=== PATIENT | female | born 1990 | race Caucasian/White ===

== ENCOUNTER 2018-09-09 08:00 | Outpatient (CLI) | payer OTHER ==
[2018-09-09 18:47] LABS: BASOPHILS % (AUTO) 0.5 %; EOSINOPHILS # (AUTO) 0.1 10^3/uL (0.0-0.7); EOSINOPHILS % (AUTO) 1.7 %; HGB - HEMOGLOBIN 11.6 g/dL (12.0-16.0); LYMPHOCYTES # (AUTO) 2.7 10^3/uL (1.5-3.5); LYMPHOCYTES % (AUTO) 35.3 %; MEAN CORPUSCULAR HEMOGLOBIN 30.1 pg (27.0-31.0); MEAN CORPUSCULAR HGB CONC 33.2 g/dL (32.0-36.0); MEAN CORPUSCULAR VOLUME 90.9 fL (81.0-99.0); MEAN PLATELET VOLUME 8.1 fL (7.9-10.8); MONOCYTES # (AUTO) 0.8 10^3/uL (0.0-1.0); MONOCYTES % (AUTO) 9.7 %; NEUTROPHILS # (AUTO) 4.1 10^3/uL (1.5-6.6); NEUTROPHILS % (AUTO) 52.8 %; PLT - PLATELET COUNT 278 10^3/uL (130-450); RED BLOOD COUNT 3.84 10^6/uL (4.20-5.40); RED CELL DISTRIBUTION WIDTH 12.2 % (12.0-15.0); WHITE BLOOD COUNT 7.8 x10^3/uL (4.8-10.8)
[2018-09-09 19:20] LABS: ALBUMIN 4.2 g/dL (3.2-5.5); ALBUMIN/GLOBULIN RATIO 1.5 (1.0-2.2); BILIRUBIN,TOTAL 0.7 mg/dL (0.2-1.0); CALCIUM 8.8 mg/dL (8.5-10.3); CREATININE 0.5 mg/dL (0.4-1.0)
[2018-09-09 20:14] LABS: THYROID STIMULATING HORMONE 1.63 uIU/mL (0.34-5.60)
[2018-09-09 20:25] LABS: FOLATE 10.52 ng/mL (5.90 - >24.8)
== END 2018-09-09 23:59 | disposition home or self-care (01) ==
LOC: LAB.N 08:00
PROVIDERS: ATTEND Nurse Practitioner
DX: R53.83 Other fatigue (principal); E55.9 Vitamin D deficiency, unspecified
CPT/HCPCS: 36415; 80053; 82306; 82607; 82746; 84443; 85025

== ENCOUNTER 2018-09-15 10:41 | Outpatient (CLI) | payer OTHER ==
[2018-09-15 13:35] LABS: % IRON SATURATION 21 % (20-50); IRON 75 ug/dL (28-170); TOTAL IRON BINDING CAPACITY 363 ug/dL (250-450); TRANSFERRIN 259 mg/dL (192-382)
== END 2018-09-15 23:59 | disposition home or self-care (01) ==
LOC: LAB.N 10:41
PROVIDERS: ATTEND Nurse Practitioner
DX: D64.9 Anemia, unspecified (principal)
CPT/HCPCS: 36415; 82728; 83540; 84466

== ENCOUNTER 2018-11-15 13:48 | Outpatient (CLI) | payer OTHER ==
--- NOTE | 2018-11-15 15:53 | Ultrasound Report ---
Reason: LUMP OR MASS IN BREAST Procedure Date: 11/15/2018 Accession Number: [id number] / [id number] Procedure: US - Breast Unilateral Limited CPT Code: FULL RESULT: EXAM: Breast Unilateral Limited DATE: 11/15/2018 2:39 PM CLINICAL HISTORY: PALPABLE LUMP OR MASS IN BREAST COMPARISON: None. TECHNIQUE: Targeted ultrasound was performed with me present of the left breast in the area of clinical concern at 2:30 o'clock and 5 cm distance from the nipple. Color Doppler was employed as appropriate. FINDINGS: Corresponding to the palpable abnormality left breast 2:30 position 5 cm from the nipple is an approximately 1.9 x 1.8 x 1.4 cm solid complex ill defined mildly vascular lesion with posterior shadowing and tiny focal areas of increased echogenicity suggesting calcifications. Exact size of the lesion is difficult to confirm due to poor margination and shadowing. IMPRESSION: Incomplete evaluation. Needs mammography for comparison. RECOMMENDATION: Follow-up by bilateral mammography. Patient is scheduled for mammogram on 11/16/2018. BIRADS CATEGORY 0: Needs additional evaluation RADIA
== END 2018-11-15 13:49 | disposition home or self-care (01) ==
LOC: DI 13:48
PROVIDERS: ATTEND Nurse Practitioner
DX: N63.21 Unspecified lump in the left breast, upper outer quadrant (principal)
CPT/HCPCS: 76642

== ENCOUNTER 2018-11-16 10:30 | Outpatient (CLI) | payer OTHER ==
--- NOTE | 2018-11-16 11:43 | Mammography Report ---
Reason: LT BREAST MASS Procedure Date: 11/16/2018 Accession Number: [id number] / [id number] Procedure: NARGIS - Diagnostic Dig Bilat CPT Code: FULL RESULT: EXAM: Diagnostic Dig Bilat DATE: 11/16/2018 11:17 AM CLINICAL HISTORY: Palpable lump left breast TECHNIQUE: (B) - Bilateral CC and MLO views were obtained. COMPARISON: Left breast ultrasound 11/15/2018 PARENCHYMAL PATTERN: (D) - The breasts demonstrate heterogeneously dense fibroglandular parenchyma bilaterally. FINDINGS: Corresponding to the left upper outer quadrant palpable abnormality is a 7 x 4 x 5 cm area of innumerable suspicious pleomorphic calcifications. The right breast is negative. IMPRESSION: Highly suggestive for malignancy. BI-RADS category 5. RECOMMENDATION: (BIOPSY) - ultrasound-guided left upper outer quadrant core biopsy is suggested. BI-RADS CATEGORY: (5) - Highly suggestive for malignancy. Results discussed with Dr. Bentley at 11:30 am on 11/16/18. STANDARD QUALIFYING STATEMENTS: 1. This examination was not reviewed with the aid of Computer-Aided Detection (CAD). 2. A negative or benign imaging report should not preclude biopsy if clinically suspicious findings are present. 3. Dense breasts may obscure an underlying neoplasm. 4. This examination was reviewed with the aid of 3D breast imaging (tomosynthesis).
== END 2018-11-16 10:31 | disposition home or self-care (01) ==
LOC: DI 10:30
PROVIDERS: ATTEND Family Medicine
DX: R92.1 Mammographic calcification found on diagnostic imaging of breast (principal)
CPT/HCPCS: 77066

== ENCOUNTER 2018-11-18 10:42 | Outpatient (CLI) | payer OTHER ==
[~2018-11-18 10:42] MED LIST: BUFFERED LIDOCAINE 10 ML SYRINGE ONE; BUPIVACAINE 0.5%-EPI 1:200000 PF 10 ML VIAL ONE
[2018-11-18] MEDS ORDERED: BUPIVACAINE 0.5%-EPI 1:200000 PF 10 ML VIAL SUBQ ONE (12:13)
[2018-11-18] MEDS ORDERED: BUFFERED LIDOCAINE 10 ML SYRINGE IU ONE (12:13)
--- NOTE | 2018-11-18 12:46 | Mammography Report ---
Reason: ABN MAMMO - LT BREAST MASS Procedure Date: 11/18/2018 Accession Number: [id number] / [id number] Procedure: NARGIS - Diagnostic Dig LT CPT Code: FULL RESULT: PROCEDURE: Ultrasound-guided needle biopsy left breast mass. CLINICAL DATA: Targeted mass measuring approximately 2 x 2 x 1.4 cm with pleomorphic calcifications and ill-defined margins in the upper outer quadrant of the left breast. Informed consent was obtained. Using standard aseptic technique, both 1% buffered lidocaine and Sensorcaine were injected into the left breast for local anesthesia. A small elvia was made in the skin with a #11 blade. A 14-gauge Achieve needle was used to obtain 7 core samples. A specialized biopsy marker clip was placed into the biopsy cavity under ultrasound guidance. The patient was taken to separate mammography machine and a two-view digital mammography was performed to verify the clip placement and any complications. The mammography showed appropriate clip positioning with respect to the suspicious area. The wound was dressed and ice applied. The patient was observed for approximately 15 minutes, then was discharged from diagnostic imaging Department in good condition following instructions on wound care and obtaining biopsy results. The patient is scheduled to receive the biopsy results from the referring physician. The tissue was sent for histologic analysis. IMPRESSION: Ultrasound-guided biopsy of the left breast. AN ADDENDUM WILL BE MADE TO THIS REPORT WHEN PATHOLOGY IS REVIEWED TO ESTABLISH CONCORDANCE.
== END 2018-11-18 10:43 | disposition home or self-care (01) ==
LOC: DI 10:42
PROVIDERS: ATTEND Family Medicine
DX: C50.412 Malignant neoplasm of upper-outer quadrant of left female breast (principal); Z17.0 Estrogen receptor positive status [ER+]
CPT/HCPCS: 19083

== ENCOUNTER 2018-11-25 13:56 | Outpatient (CLI) | payer OTHER ==
[2018-11-25 14:46] LABS: CREATININE 0.7 mg/dL (0.4-1.0)
[2018-11-25 14:47] LABS: HCG UR QUAL NEGATIVE
[2018-11-25] MEDS ORDERED: GADOBUTROL 7.5 MMOL/7.5 ML VIAL ONE (15:22)
[2018-11-25] MEDS: GADOBUTROL 7.5 MMOL/7.5 ML VIAL IVP ONE (16:26)
--- NOTE | 2018-11-28 13:50 | MRI Report ---
Reason: INVASIVE DUCTAL CARCINOMA,LEFT BREAST Procedure Date: 11/25/2018 Accession Number: [id number] / [id number] Procedure: MRI - Breast W/WO Cont CPT Code: 78648 FULL RESULT: EXAM: BILATERAL BREAST MRI WITHOUT AND WITH CONTRAST WITH CHEST WITHOUT CONTRAST EXAM DATE: 11/25/2018 04:27 PM CLINICAL HISTORY: The patient is a 28 year old female newly diagnosed with left breast invasive carcinoma. Pretreatment MRI to assess for extent of disease. TECHNIQUE: Body Coil: (Limited chest MRI)- Coronal LFOV STIR Dedicated breast coil: Axial - precontrast STIR Axial - postcontrast sequential 1 minute three-dimensional FLASH (x 5) Axial - high-resolution volumetric water stimulation acquisition (VIEWS) CONTRAST USED: 6 mL Gadavist. POSTPROCESSING: Subtraction dynamic/curve analysis and multiplanar reformations with CAD stream FINDINGS: Background tissue: Heterogeneously dense. There is moderate diffuse background parenchymal enhancement which limits MR sensitivity for subcentimeter foci of invasive disease and DCIS. Right breast: There is no definite dominant focus of suspicious mass or non-mass enhancement. There is no skin thickening. There are no pathologically enlarged axillary lymph nodes. Left breast: There is irregularly-marginated hypervascular mass in the upper outer quadrant corresponding to the site of biopsy-proven malignancy. This mass measures approximately 4.2 x 4.4 x 4.7 cm. There is contiguous non-mass conglomerate enhancement extending anteriorly to the nipple corresponding to the mammographically visible calcifications. The net dimension is 8 cm in anterior to posterior distance. There is no evidence for skin invasion. There are two pathologically enlarged (replaced) level 1 axillary lymph nodes with mild marginal edema suggestive of extracapsular extension. IMPRESSION: 1. RIGHT BREAST: No convincing evidence for malignancy. (Note exam limitations described above) BI-RADS 2 - Benign. 2. LEFT BREAST: The biopsy-proven malignancy is confirmed, the dominant mass measures 4.7 cm in maximal dimension. Contiguous non-mass enhancement corresponds to the mammographically visible calcifications and is most suspicious for associated DCIS (8 cm in maximal net AP dimension). Pathologic axillary lymph nodes with possible extracapsular extension of disease. BI-RADS 6 - Known Malignancy. COMMENT: The literature indicates that a negative dynamic breast MRI has a high sensitivity and specificity for the detection of invasive carcinoma (to a threshold of 5 mm). MRI is not reliably sensitive for detecting ductal carcinoma in situ or large invasive neoplasms with only minimal enhancement (i.e. mucinous carcinoma). Normal-appearing lymph nodes on MRI may contain microscopic tumor. Appropriate clinical mammographic and sonographic followup should be performed if recommended. Negative MRI should not dissuade further evaluation of any suspicious mammographic calcifications and/or worrisome palpable masses.
== END 2018-11-25 13:57 | disposition home or self-care (01) ==
LOC: DI 13:56
PROVIDERS: ATTEND Surgery
DX: C50.412 Malignant neoplasm of upper-outer quadrant of left female breast (principal); R59.0 Localized enlarged lymph nodes
CPT/HCPCS: 36415; 77049; 81025; 82565; A9585

== ENCOUNTER 2018-12-06 10:03 | Day surgery (SDC) | payer OTHER ==
[2018-12-06] MEDS ORDERED: CEFAZOLIN SODIUM IN 0.9 % NACL 2 GM/100 ML BAG IV ONE (10:54)
[2018-12-06] MEDS ORDERED: LACTATED RINGERS 1,000 ML IV ONE ×2 (11:05→15:30)
--- NOTE | 2018-12-06 11:19 | ANESTHESIA ---
Pre-Anesthesia VS, & Labs - Diagnosis Left breast cancer - Procedure Left simple mastectomy with left axillary node dissection Vital Signs: Temp Pulse Resp BP Pulse Ox 36.6 C 74 18 133/86 H 100 12/06/18 10:21 12/06/18 10:21 12/06/18 10:21 12/06/18 10:21 12/06/18 10:21 Height 5 ft 1 in Weight (kg) 60 kg - NPO >8 hours (0730 water) - Is Patient ?: No - Lab Results Lab results reviewed: Yes Home Medications and Allergies Home Medications: Ambulatory Orders Bupropion HCl [Bupropion Xl] 150 mg PO DAILY 12/05/18 Bupropion HCl [Bupropion Xl] 150 mg PO DAILY 12/05/18 Allergies/Adverse Reactions: Allergies Allergy/AdvReac Type Severity Reaction Status Date / Time No Known Drug Allergies Allergy Verified 12/05/18 11:45 Anes History & Medical History - Anesthetic History Anesthesia Complications: reports: No previous complications Family history of Anesthesia Complications: Denies Family history of Malignant Hyperthermia: Denies - Medical History Cardiovascular: reports: None Pulmonary: reports: None Gastrointestinal: reports: None Urinary: reports: None Neuro: reports: None Musculoskeletal: reports: None Endocrine/Autoimmune: reports: None Blood Disorders: reports: Anemia Skin: reports: None Smoking Status: Never smoker Psychosocial: reports: Depression Exam General: Alert, Oriented x3, Cooperative Dental: WNL Mouth Opening: Greater than 4 Fingerbreadths Neck Mobility: Normal Mallampati classification: I Thyromental Distance: greater than 6 cm Respiratory: Lungs clear Cardiovascular: Regular rate Mental/Cognitive Status: Alert/Oriented X3 Cognitive Status: Within normal limits Plan Anesthesia Type: General Consent for Procedure(s) Verified and Reviewed: Yes Code Status: Attempt Resuscitation ASA classification: 1-Healthy patient Is this case an emergency?: No
[2018-12-06 11:40] LABS: HCG UR QUAL NEGATIVE
[2018-12-06] MEDS ORDERED: BUPIVACAINE 0.5%-EPI 1:200000 PF 30 ML VIAL ONE (13:03)
[2018-12-06] MEDS ORDERED: LIDOCAINE-MPF 1% 30 ML VIAL ONE (13:03)
--- NOTE | 2018-12-06 14:50 | OPERATIVE REPORT ---
Operative Report - General Procedure Date: 12/06/18 Planned Procedure: Left subcutaneous mastectomy with axillary dissection Pre-Op Diagnosis: Locally advanced left breast cancer Procedure Performed: Left subcutaneous mastectomy with axillary dissection Post Op Diagnosis: Same - Procedure Note Primary Surgeon: Angie Anesthesia Provider: Jimbo Anesthesia Technique: General LMA, Local, Regional block Estimated Blood Loss (mL): 25 Drain/Tube Type: Jason drain (In the inferior mastectomy pocket) Findings: Palpably enlarged and abnormal level one axillary node - Other Other Information/Narrative: After obtaining informed consent, the patient is brought to the operating room placed in supine position on the operating table.Following sedation, the patient underwent a successful pectoralis block per the anesthesia provider. Then, following successful induction of general endotracheal anesthesia, appropriate padding of all bony prominences and placement of appropriate monitors, the left chest, breast, and axilla were prepped and draped in the standard surgical fashion.A timeout was held per SCOAP protocol. Additional local anesthetic was infiltrated posterior to the nipple areolar complex to provide a field block.A circular incision was created around the nipple areolar complex. This was carried down through the skin and subcutaneous tissue. Planes of dissection were developed superiorly to the clavicle, medially to the sternum, inferiorly to the inframammary fold, and laterally to the latissimus muscle. The breast tissue was liberated from the overlying skin and subtenons tissue by dividing the Vinny's ligaments and other connective tissue. Once dissection had been carried down to the chest wall circumferentially, the breast was liberated from the muscle to include the fascia. This left the breast only attached by the small portion of the axillary tail and the axillary node packet. The previously identified palpably enlarged node was once again palpated and identified. We proceeded with a level 1 and 2 axillary dissection.This included mirta tissue inferior to and beneath the pectoralis minor muscle. All afferemt and efferent vasculature and lymphatics were addressed with hemoclips prior to division.This allowed us to completely liberate the breast from the chest wall.It was marked for orientation with a short stitch superior and a long stitch lateral.The wound was then checked for hemostasis and irrigated with warm water. It was aspirated free of all blood and particulate matter. A 19 Welsh Jason drain was trimmed and placed in the inframammary pocket. This was sewn into place with nylon suture. The skin incision was then closed with Vicryl Monocryl suture and Dermabond was applied to the skin. All sponge, needle, instrument counts were correct at the conc lusion of the case. The patient was allowed to awake from anesthesia without difficulty and taken to the postanesthesia care unit in good condition.
[2018-12-06] MEDS ORDERED: ROPIVACAINE 0.5% PF 20 ML AMPULE EP ONE (14:55)
[2018-12-06] MEDS ORDERED: MIDAZOLAM 2 MG/2 ML VIAL IVP ONE (14:55)
[2018-12-06] MEDS ORDERED: fentaNYL 100 MCG/2 ML VIAL IVP ONE (14:55)
[2018-12-06] MEDS ORDERED: KETOROLAC 30 MG/ML VIAL IVP ONE (14:55)
[2018-12-06] MEDS ORDERED: DEXAMETHASONE 4 MG/ML VIAL IVP ONE (14:55)
[2018-12-06] MEDS ORDERED: ONDANSETRON 4 MG/2 ML VIAL IVP ONE (14:55)
[2018-12-06] MEDS ORDERED: LIDOCAINE-MPF 2% 5 ML VIAL IM ONE (14:55)
[2018-12-06] MEDS ORDERED: ACETAMINOPHEN 1,000 MG/100 ML 100 ML IV ONE (14:55)
[2018-12-06] MEDS ORDERED: PROPOFOL 200 MG/20 ML VIAL IVP ONE (14:55)
[2018-12-06] MEDS: HYDROmorphone 1 MG/ML CARPUJECT ONE ×2 (15:00→15:10)
[2018-12-06] MEDS ORDERED: ACETAMINOPHEN 325 MG TABLET PO PRN (15:26)
[2018-12-06] MEDS ORDERED: ONDANSETRON 4 MG/2 ML VIAL IVP PRN (15:26)
[2018-12-06] MEDS ORDERED: HYDROmorphone 0.5 MG/0.5 ML SYRINGE IVP PRN (15:26)
[2018-12-06] MEDS ORDERED: SODIUM CHLORIDE FLUSH 0.9% 10 ML SYRINGE IVP PRN (15:26)
[2018-12-06] MEDS ORDERED: LORazepam 2 MG/ML VIAL IVP PRN (15:26)
[2018-12-06] MEDS: LACTATED RINGERS 1,000 ML IV SCH (16:00)
[2018-12-06] MEDS: SODIUM CHLORIDE FLUSH 0.9% 10 ML SYRINGE IVP SCH (16:49)
[2018-12-06] MEDS: KETOROLAC 15 MG/ML VIAL IVP PRN (17:55)
[2018-12-06] MEDS: oxyCODONE 5 MG TABLET PO PRN (21:04)
[2018-12-07] MEDS: KETOROLAC 15 MG/ML VIAL IVP PRN (00:31)
[2018-12-07] MEDS: SODIUM CHLORIDE FLUSH 0.9% 10 ML SYRINGE IVP SCH (00:36)
[2018-12-07] MEDS: LACTATED RINGERS 1,000 ML IV SCH (03:03)
[2018-12-07] MEDS: oxyCODONE 5 MG TABLET PO PRN ×2 (03:44→08:47)
[2018-12-07] MEDS ORDERED: PANTOPRAZOLE 40 MG TABLET PO SCH (07:00)
[2018-12-07 08:19] VITALS: BP 110/58
--- NOTE | 2018-12-07 08:38 | PROVIDER PROGRESS NOTE ---
Subjective - Prog Note Date Prog Note Date: 12/07/18 Prog Note Time: 08:35 - Subjective Pt reports feeling: Improved Subjective: Manisha is in good spirits today. She reports using very little pain medicine and says she just feels "sore". She is comfortable with drain management and feels she is ready to go home. Objective - Vital Signs/Intake & Output Vital Signs: Vital Signs x48h Temp Pulse Resp BP Pulse Ox 12/07/18 08:18 37.0 C 82 18 110/58 L 100 12/07/18 03:56 36.6 C 71 16 111/57 L 98 12/07/18 00:43 36.5 C 86 17 109/66 100 Intake & Output: Intake & Output 12/04/18 12/05/18 12/06/18 12/07/18 23:59 23:59 23:59 23:59 Intake Total 1650 1078.75 Output Total 140 10 Balance 1510 1068.75 - Objective General Appearance: positive: No acute distress Eyes Bilateral: positive: Normal inspection, PERRL, EOMI Respiratory: positive: Breath sounds nml Cardiovascular: positive: Regular rate & rhythm Abdomen: positive: Non-tender Skin: positive: Other (Skin at the mastectomy is alive and well vascularized though there is some venous congestion. Minimal bruising. Drainage is serosanguinous. No clots in the bulb) - Lab Results Other Labs: Lab Results x24hrs 12/06/18 Range/Units 11:00 Ur Specific [place] 1.010 (1.002-1.030) Urine HCG, Qual NEGATIVE Assessment/Plan - Problem List (1) Breast cancer, left breast Impression: Left breast cancer s/p left skin sparing modified radical mastectomy. No issues this morning and progressing as expected. Will discharge to home today and plan to see back in the clinic on Wednesday. Qualifiers: Breast location: overlapping sites of breast Estrogen receptor status: positive Patient sex: female Qualified Code(s): C50.812 - Malignant neoplasm of overlapping sites of left female breast; Z17.0 - Estrogen receptor positive status [ER+]
--- NOTE | 2018-12-07 08:52 | Discharge Plan ---
Discharge Plan Disposition: 01 Home, Self Care Condition: Good Prescriptions: Ondansetron Odt [Zofran] 4 mg SL Q6H PRN #20 tab MDD 6 PRN Reason: Nausea / Vomiting Oxycodone HCl/Acetaminophen [Percocet 5-325 mg Tablet] 1 each PO Q3H PRN #20 tablet MDD 6 PRN Reason: Pain Diet: Regular Activity Restrictions: Keep you left arm a t your side. Remember to take a stool softener every time you take narcotic pain medication. Any over the counter pro duct will do. Some options include Glycolax, docusate sodium and Magnesium. Apply ice the incision as often as you can tolerate. This will help with pain and with swelling and bruising. Shower Restrictions: No (Please do not soak in a tub) Driving Restrictions: Yes (You may drive when you no longer require narcotic pain medications) No Smoking: If you smoke, Please STOP! Call for help. Follow-up with: Flory Bentley DO [Primary Care Provider] -
--- NOTE | 2018-12-07 09:04 | DISCHARGE SUMMARY ---
"Discharge Summary Admit Date: 12/06/18 Discharge Date: 12/07/18 Discharging Provider: Angie Code Status: Attempt Resuscitation Condition at Discharge: Good Discharge Disposition: 01 Home, Self Care - DIAGNOSES Admission Diagnoses: Left Breast Cancer Discharge Diagnoses with Status of Each Condition: Same - Improved - HPI History of Present Illness: Manisha is a danny 28 year old lady with a recent diagnosis of left breast cancer. She presented to ambulatory surgery on the day of admission to undergo a left mastectomy. - CONSULTS | PROCEDURES Consultations: None Procedures: Left skin sparing modified radical mastectomy - HOSPITAL COURSE Hospital Course: Manisha had an uneventful surgical intervention and was placed in observation afterward for pain control and risk of bleeding. She has done very well overnight and has using very little medication. She has been instructed on drain management and reports she is comfortable with it. She has tolerated a general diet and has ambulated in the hallway. - ALLERGIES Allergies/Adverse Reactions: Allergies Allergy/AdvReac Type Severity Reaction Status Date / Time No Known Drug Allergies Allergy Verified 12/05/18 11:45 - MEDICATIONS Home Medications: Ambulatory Orders Medication Instructions Recorded Confirmed Bupropion HCl [Bupropion Xl] 150 mg PO DAILY 12/05/18 12/06/18 Ondansetron Odt [Zofran] 4 mg SL Q6H PRN #20 tab MDD 6 12/07/18 Oxycodone HCl/Acetaminophen 1 each PO Q3H PRN #20 tablet MDD 6 12/07/18 [Percocet 5-325 mg Tablet] - PHYSICAL EXAM AT DISCHARGE General Appearance: positive: No acute distress Eyes Bilateral: positive: Normal inspection ENT: positive: ENT inspection nml Respiratory: positive: Breath sounds nml Cardiovascular: positive: Regular rate & rhythm Abdomen: positive: Non-tender Skin: positive: Color nml (Mastectomy site is well vascularized and there is no evidence of epidermolysis. Mild venous congestion. All skin is viable) Extremities: positive: Non-tender, Nml appearance Neurologic/Psychiatric: positive: Oriented x3, Mood/affect nml - QUALITY (Female Hip Fx Only) Was patient sent home on osteoporosis medication?: No - FOLLOW UP Follow Up: Follow up appointment with me on Wednesday. - TIME SPENT Time Spent in Discharge (Minutes): 30"
== END 2018-12-07 10:55 | disposition home or self-care (01) ==
LOC: SDS 10:03 → MS2 15:26 → UNDOADMOB 15:26 → SDS 12-07 10:55 → UNDODISOB 12-07 10:55
PROVIDERS: ATTEND Surgery
PROC: 0HTU0ZZ Resection of Left Breast, Open Approach (ICD-10-PCS; principal; 2018-12-06 11:25)
PROC: 07T60ZZ Resection of Left Axillary Lymphatic, Open Approach (ICD-10-PCS; 2018-12-06 11:25)
DX: C50.812 Malignant neoplasm of overlapping sites of left female breast (principal); C77.3 Secondary and unspecified malignant neoplasm of axilla and upper limb lymph nodes; N64.59 Other signs and symptoms in breast; Z17.0 Estrogen receptor positive status [ER+]; Z80.3 Family history of malignant neoplasm of breast
CPT/HCPCS: 19307; 81025; A9270; J0131; J0690; J1170; J7120

== ENCOUNTER 2018-12-26 11:08 | Outpatient (CLI) | payer OTHER | END 2018-12-26 11:09 | disposition home or self-care (01) | LOC: DI 11:08 | PROVIDERS: ATTEND Internal Medicine Hematology & Oncology | DX: C50.912 Malignant neoplasm of unspecified site of left female breast (principal) | CPT/HCPCS: 93306 ==

== ENCOUNTER 2018-12-27 08:21 | Day surgery (SDC) | payer OTHER ==
[2018-12-27 08:37] LABS: HCG UR QUAL NEGATIVE
[2018-12-27] MEDS ORDERED: CEFAZOLIN SODIUM IN 0.9 % NACL 2 GM/100 ML BAG IV ONE (08:42)
[2018-12-27] MEDS ORDERED: LACTATED RINGERS 1,000 ML IV ONE (08:48)
[2018-12-27] MEDS ORDERED: LIDOCAINE 1% 50 ML MDV ONE (09:34)
[2018-12-27] MEDS ORDERED: SODIUM CHLORIDE 0.9% 50 ML ONE (09:34)
[2018-12-27] MEDS ORDERED: BUPIVACAINE 0.5%-EPI 1:200000 PF 30 ML VIAL ONE (09:34)
--- NOTE | 2018-12-27 09:39 | ANESTHESIA ---
Pre-Anesthesia VS, & Labs - Diagnosis left breast cancer - Procedure placement of port Vital Signs: Temp Pulse Resp BP Pulse Ox 36.5 C 73 16 119/80 98 12/27/18 08:31 12/27/18 08:31 12/27/18 08:31 12/27/18 08:31 12/27/18 08:31 Height 5 ft 1 in Weight (kg) 59 kg - NPO >8 hours - Is Patient ?: No Home Medications and Allergies Bupropion HCl [Bupropion Xl] 150 mg PO DAILY 12/05/18 Allergies/Adverse Reactions: Allergies Allergy/AdvReac Type Severity Reaction Status Date / Time gabapentin AdvReac Headache Verified 12/26/18 13:48 Anes History & Medical History - Anesthetic History Anesthesia Complications: reports: No previous complications - Medical History Cardiovascular: reports: None Pulmonary: reports: None Gastrointestinal: reports: None Urinary: reports: None Neuro: reports: None Musculoskeletal: reports: None Endocrine/Autoimmune: reports: None Blood Disorders: reports: Anemia Skin: reports: None Smoking Status: Never smoker Psychosocial: reports: Depression, Anxiety - Surgical History Gynecologic: Other (left mastectomy) Exam General: Alert, Oriented x3, Cooperative, No acute distress Dental: WNL Mouth Openin Fingerbreadth Neck Mobility: Normal Mallampati classification: I Thyromental Distance: greater than 6 cm Respiratory: Lungs clear, Normal breath sounds, No respiratory distress, No accessory muscle use Cardiovascular: Regular rate, Normal S1, Normal S2, No murmurs Mental/Cognitive Status: Alert/Oriented X3, Normal for patient Plan Anesthesia Type: MAC Consent for Procedure(s) Verified and Reviewed: Yes Code Status: Attempt Resuscitation ASA classification: 2-Mild systemic disease Is this case an emergency?: No
[2018-12-27] MEDS ORDERED: BUPIVACAINE 0.5%-EPI 1:200000 PF 30 ML VIAL SUBQ ONE ×2 (10:12)
[2018-12-27] MEDS ORDERED: LIDOCAINE 1% 50 ML MDV SUBQ ONE ×2 (10:12)
[2018-12-27] MEDS ORDERED: fentaNYL 100 MCG/2 ML VIAL IVP ONE (10:25)
[2018-12-27] MEDS ORDERED: MIDAZOLAM 2 MG/2 ML VIAL IVP ONE (10:25)
[2018-12-27] MEDS ORDERED: PROPOFOL 200 MG/20 ML VIAL IVP ONE (10:25)
--- NOTE | 2018-12-27 10:37 | OPERATIVE REPORT ---
Operative Report - General Procedure Date: 12/27/18 Planned Procedure: Right subclavian PowerPort Pre-Op Diagnosis: Left breast cancer Procedure Performed: Right subclavian PowerPort Post Op Diagnosis: Same - Procedure Note Primary Surgeon: Angie Anesthesia Provider: FLOYD Sheehan Anesthesia Technique: Local, MAC Estimated Blood Loss (mL): 10 Findings: Port in good position in the superior vena cava Complications: None apparent - Other Other Information/Narrative: After obtaining informed consent, the patient is brought to the operating room and placed in the supine position on the operating table. Following successful induction of general endotracheal anesthesia, appropriate padding of all bony prominences, and placement of appropriate monitors, the right chest is prepped and draped in the standard surgical fashion. A timeout was held per PROAP protocol. Following infiltration with local anesthetic to create a field block, the right subclavian vein was accessed in the deltopectoral groove. Applying Seldinger technique, a J-wire was placed through the needle and into the vein. Fluoroscopy confirmed position of the wire in the superior vena cava.A pocket was created 3 cm inferior to the access site for placement of the port device. This was developed bluntly and cautery was used to achieve hemostasis. The tunneling device was used to connect to the port site and the access site togeth er and the tubing was trimmed to an appropriate length. The port was assembled according to tile molder hand's directions and sewn in the pocket with 2 interrupted Prolene sutures. The dilator and introducer were then passed over the wire and into the vein. The dilator was removed and the tubing passed through the introducer and into the vein.The introducer was split and removed.The port was checked for function and flushed and concepcion easily. It was then flushed with 2000 units or 2 cc of heparin.The pocket was closed with Vicryl and Monocryl suture and Monocryl was applied at the access site.The wound was dressed with Dermabond. All sponge, needle, and instrument counts were correct at the conclusion of the case. The patient received a chest x-ray in the recovery room revealing the port in good position.
[2018-12-27 11:17] VITALS: BP 110/74
--- NOTE | 2018-12-27 13:03 | XRAY Report ---
Reason: PORTACATH PLACEMENT Procedure Date: 12/27/2018 Accession Number: [id number] / [id number] Procedure: FL - OR Port-A-Cath CPT Code: FULL RESULT: EXAM: FLUOROSCOPIC GUIDANCE EXAM DATE: 12/27/2018. CLINICAL HISTORY: PORTACATH PLACEMENT. COMPARISON: None. FINDINGS: None. IMPRESSION: Fluoroscopic guidance provided for port placement. Total fluoroscopy time: 0.1 minutes. Number of images: 0. RADIA
--- NOTE | 2018-12-27 13:27 | XRAY Report ---
Reason: S/P PORT PLACEMENT Procedure Date: 12/27/2018 Accession Number: [id number] / [id number] Procedure: XR - Post Port Placement 1V CXR CPT Code: 02052 FULL RESULT: EXAM: CHEST RADIOGRAPHY EXAM DATE: 12/27/2018 11:06 AM. CLINICAL HISTORY: Status post port placement. COMPARISON: None. TECHNIQUE: 1 view. FINDINGS: Lungs/Pleura: No focal opacities evident. No pleural effusion. No pneumothorax. Mediastinum: Within exam limitations, the cardiomediastinal contour is normal. Other: A right subclavian approach central venous catheter port is seen with the distal tip in the SVC. There is twisting and luminal narrowing of the central venous catheter as it dives under the clavicle, correlate to ability to flush and withdraw blood as clinically indicated. IMPRESSION: Port placement as described. RADIA
== END 2018-12-27 08:22 | disposition home or self-care (01) ==
LOC: SDS 08:21
PROVIDERS: ATTEND Surgery
PROC: 02HV33Z Insertion of Infusion Device into Superior Vena Cava, Percutaneous Approach (ICD-10-PCS; 2018-12-27)
PROC: 0JH63WZ Insertion of Totally Implantable Vascular Access Device into Chest Subcutaneous Tissue and Fascia, Percutaneous Approach (ICD-10-PCS; principal; 2018-12-27 09:30)
DX: C50.912 Malignant neoplasm of unspecified site of left female breast (principal); Z90.12 Acquired absence of left breast and nipple
CPT/HCPCS: 36561; 81025; C1751; J0690; J7120; 71045

== ENCOUNTER 2019-01-05 08:39 | Outpatient (CLI) | payer OTHER ==
--- NOTE | 2019-01-05 15:40 | Nuclear Medicine Report ---
Reason: L BREAST CANCER Procedure Date: 01/05/2019 Accession Number: [id number] / [id number] Procedure: NM - Bone Whole Body CPT Code: FULL RESULT: EXAM: BONE SCAN EXAM DATE: 01/05/2019 12:26 PM. CLINICAL HISTORY: L BREAST CANCER. COMPARISON: ABDOMEN/PELVIS W01/05/2019 10:47 AM CHEST W01/05/2019 10:47 AM. TECHNIQUE: Following the intravenous administration of 32.7 mCi of technetium 99m MDP and an appropriate delay, a whole-body scan was performed in anterior and posterior projections. Site-specific spot views of the region of interest were obtained in various projections. FINDINGS: Exam Quality: Normal overall osseous radiotracer uptake. Physiological tracer uptake in bilateral collecting systems. Skull: There is a tiny focus of intense uptake at the superior lateral right orbital margin. This is typically a benign finding associated with the zygomaticofrontal suture. Thorax: No focal lesions in ribs or sternum. Pelvis: No focal lesions. Spine: No focal uptake in the cervical or thoracic or lumbar spine. IMPRESSION: No scintigraphic findings concerning for skeletal metastatic disease. RADIA
== END 2019-01-05 08:40 | disposition home or self-care (01) ==
LOC: DI 08:39
PROVIDERS: ATTEND Internal Medicine Hematology & Oncology
DX: C50.912 Malignant neoplasm of unspecified site of left female breast (principal)
CPT/HCPCS: 78306

== ENCOUNTER 2019-01-16 14:00 | Inpatient (IN) | payer OTHER ==
[~2019-01-16 14:00] MED LIST changes: -BUFFERED LIDOCAINE 10 ML SYRINGE ONE; -BUPIVACAINE 0.5%-EPI 1:200000 PF 10 ML VIAL ONE; +VANCOMYCIN INJ 1 GM in SODIUM CHLORIDE 0.9% 250 ML IV SCH
--- NOTE | 2019-01-16 14:33 | ED Physician Documentation ---
PD HPI URI - Stated complaint Stated Complaint: FEVER, SORE THROAT - History obtained from History obtained from: Patient - History of Present Illness Timing - onset: Last night Timing duration: Days (1/2) Timing details: Abrupt onset, Still present Associated symptoms: Fever (She states she started feeling general malaise with sore throat and had a feeling of fever through the night. She took her temperature with the highest recorded of 103.) Contributing factors: Immunocompromised (first chemo 1 week ago for breast cancer, first chemo.). No: Sick contact, Unimmunized Similar symptoms before: Has not had sx before Recently seen: Clinic (She had chemotherapy by Dr. Moncada at the [facility] clinic 1 week ago for breast cancer.) Review of Systems Constitutional: reports: Fever. denies: Myalgias Nose: denies: Rhinorrhea / runny nose, Congestion Throat: reports: Sore throat Cardiac: denies: Chest pain / pressure Respiratory: denies: Cough GI: reports: Nausea. 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 (left mastectomy) - Present Medications Home Medications: Ambulatory Orders Medication Instructions Recorded Confirmed Bupropion HCl [Bupropion Xl] 150 mg PO DAILY 12/05/18 01/10/19 Acetaminophen [Tylenol] 325 mg PO Q6HR PRN 01/10/19 01/10/19 - Allergies Allergies/Adverse Reactions: Allergies Allergy/AdvReac Type Severity Reaction Status Date / Time gabapentin AdvReac Headache Verified 01/16/19 14:38 - Social History Smoking Status: Never smoker PD ED PE NORMAL - Vitals Vital signs reviewed: Yes - General General: Alert and oriented X 3, No acute distress, Well developed/nourished - HEENT HEENT: Moist mucous membranes, Pharynx benign - Neck Neck: Supple, no meningeal sign, No adenopathy - Cardiac Cardiac: No: RRR (tachy but regular) - Respiratory Respiratory: Clear bilaterally - Abdomen Abdomen: Soft, Non tender - Back Back: No CVA TTP - Derm Derm: Normal color, Warm and dry, No rash, Other (port site without signs of infection) - Extremities Extremities: No edema, No calf tenderness / cord - Neuro Neuro: Alert and oriented X 3, No motor deficit, Normal speech Eye Opening: Spontaneous Motor: Obeys Commands Verbal: Oriented GCS Score: 15 Results - Vitals Vitals: Vital Signs - 24 hr 01/16/19 01/16/19 14:34 16:19 Temperature 37.3 C 37.3 C Heart Rate 111 H 101 H Respiratory 14 14 Rate Blood Pressure 128/77 124/78 O2 Saturation 100 99 Oxygen O2 Source Room air - Labs Labs: Laboratory Tests 01/16/19 01/16/19 01/16/19 15:11 15:11 15:11 WBC 0.5 L* RBC 3.67 L Hgb 10.8 L Hct 32.6 L MCV 88.8 MCH 29.4 MCHC 33.1 RDW 11.5 L Plt Count 167 MPV 9.5 Neut # (Auto) 0.0 L* Lymph # (Auto) 0.4 L [place] # (Auto) 0.0 Eos # (Auto) 0.1 Baso # (Auto) 0.0 Absolute Nucleated RBC 0.00 Nucleated RBC % 0.0 Manual Slide Review Indicated Platelet Estimate NORMAL (130-450,000) Platelet Morphology NORMAL APPEARANCE RBC Morph Micro Appear NORMAL APPEARANCE Sodium 133 L Potassium 4.0 Chloride 98 L Carbon Dioxide 24 Anion Gap 11.0 BUN 9 Creatinine 0.7 Estimated GFR (MDRD) 100 Glucose 113 H Lactic Acid 1.1 Calcium 9.2 Total Bilirubin 0.7 AST 11 ALT 11 Alkaline Phosphatase 55 Total Protein 7.9 Albumin 4.5 Globulin 3.4 Albumin/Globulin Ratio 1.3 Lipase 21 L Urine Color Urine Clarity Urine pH Ur Specific [place] Urine Protein Urine Glucose (UA) Urine Ketones Urine Occult Blood Urine Nitrite Urine Bilirubin Urine Urobilinogen Ur Leukocyte Esterase Ur Microscopic Review Urine Culture Comments Infectious [place] Assay Group A Strep Rapid 01/16/19 01/16/19 01/16/19 15:11 15:47 Unknown WBC RBC Hgb Hct MCV MCH MCHC RDW Plt Count MPV Neut # (Auto) Lymph # (Auto) [place] # (Auto) Eos # (Auto) Baso # (Auto) Absolute Nucleated RBC Nucleated RBC % Manual Slide Review Platelet Estimate Platelet Morphology RBC Morph Micro Appear Sodium Potassium Chloride Carbon Dioxide Anion Gap BUN Creatinine Estimated GFR (MDRD) Glucose Lactic Acid Calcium Total Bilirubin AST ALT Alkaline Phosphatase Total Protein Albumin Globulin Albumin/Globulin Ratio Lipase Urine Color YELLOW Urine Clarity HAZY Urine pH 6.5 Ur Specific [place] <=1.005 Urine Protein NEGATIVE Urine Glucose (UA) NEGATIVE Urine Ketones NEGATIVE Urine Occult Blood LARGE H Urine Nitrite NEGATIVE Urine Bilirubin NEGATIVE Urine Urobilinogen 0.2 (NORMAL) Ur Leukocyte Esterase NEGATIVE Ur Microscopic Review INDICATED Urine Culture Comments Not Reportable Infectious [place] Assay NEGATIVE Group A Strep Rapid Negative PD MEDICAL DECISION MAKING - ED course Complexity details: reviewed results (The patient is considerably neutropenic. Her rapid strep test is negative. She is slightly tachycardic. Concern for immunocompromised in the setting of recorded fever of 103 at home without an obvious source. Will talk with the hospitalist regarding further treatment and evaluation.), re-evaluated patient, considered differential (Recorded temperature of 103 at home. She does have some sore throat. She is tachycardic . She is at risk for neutropenia given chemotherapy a week ago. Will check labs strep test blood cultures urine and signs of sepsis such as lactate. Will obtain blood cultures as well.), d/w patient
[2019-01-16] MEDS ORDERED: cefTRIAXone 1 GM VIAL IVP STA (15:00)
[2019-01-16] MEDS ORDERED: SODIUM CHLORIDE 0.9% 1,000 ML IV ONE ×2 (15:00→16:51)
[2019-01-16 15:23] LABS: EOSINOPHILS # (AUTO) 0.1 10^3/uL (0.0-0.7); EOSINOPHILS % (AUTO) 12.2 %; HGB - HEMOGLOBIN 10.8 g/dL (12.0-16.0); LYMPHOCYTES # (AUTO) 0.4 10^3/uL (1.5-3.5); LYMPHOCYTES % (AUTO) 77.6 %; MEAN CORPUSCULAR HEMOGLOBIN 29.4 pg (27.0-31.0); MEAN CORPUSCULAR HGB CONC 33.1 g/dL (32.0-36.0); MEAN CORPUSCULAR VOLUME 88.8 fL (81.0-99.0); MEAN PLATELET VOLUME 9.5 fL (7.9-10.8); MONOCYTES % (AUTO) 6.1 %; NEUTROPHILS % (AUTO) 2.1 %; PLT - PLATELET COUNT 167 10^3/uL (130-450); RED BLOOD COUNT 3.67 10^6/uL (4.20-5.40); RED CELL DISTRIBUTION WIDTH 11.5 % (12.0-15.0)
[2019-01-16 15:29] LABS: WHITE BLOOD COUNT 0.5 x10^3/uL (4.8-10.8)
[2019-01-16 15:31] LABS: ALBUMIN 4.5 g/dL (3.2-5.5); ALBUMIN/GLOBULIN RATIO 1.3 (1.0-2.2); BILIRUBIN,TOTAL 0.7 mg/dL (0.2-1.0); CALCIUM 9.2 mg/dL (8.5-10.3); CREATININE 0.7 mg/dL (0.4-1.0); TOTAL PROTEIN 7.9 g/dL (6.7-8.2)
[2019-01-16 15:59] LABS: PLATELET ESTIMATE, MANUAL NORMAL (130-450,000) (NORMAL); PLATELET MORPHOLOGY NORMAL APPEARANCE (NORMAL); RBC MORPHOLOGY (MULTIPLE) NORMAL APPEARANCE (NORMAL)
[2019-01-16] MEDS ORDERED: VANCOMYCIN INJ 1 GM in SODIUM CHLORIDE 0.9% 500 ML IV STA (16:00)
[2019-01-16 16:16] LABS: BILIRUBIN,URINE NEGATIVE (NEGATIVE); GLUCOSE, URINE (UA) NEGATIVE (NEGATIVE); KETONES,URINE (UA) NEGATIVE (NEGATIVE); LEUKOCYTE ESTERASE, URINE NEGATIVE (NEGATIVE); NITRITE,URINE NEGATIVE (NEGATIVE); OCCULT BLOOD,URINE LARGE (NEGATIVE); PH,URINE 6.5 PH (5.0-7.5); PROTEIN,URINE NEGATIVE (NEGATIVE); UROBILINOGEN,URINE 0.2 (NORMAL) E.U./dL (NORMAL)
[2019-01-16 16:20] LABS: CLARITY,URINE HAZY (CLEAR)
[2019-01-16] MEDS ORDERED: oxyCODONE 5 MG TABLET PO PRN (16:30)
[2019-01-16] MEDS ORDERED: ONDANSETRON ODT 4 MG TABLET TL PRN (16:30)
[2019-01-16] MEDS ORDERED: SODIUM CHLORIDE FLUSH 0.9% 10 ML SYRINGE IVP PRN (16:30)
[2019-01-16] MEDS ORDERED: ONDANSETRON 4 MG/2 ML VIAL IVP PRN (16:30)
[2019-01-16 16:51] LABS: BACTERIA,URINE None Seen /HPF (None Seen); SQUAMOUS EPITHELIAL CELL,UR FEW Squamous (<= Few)
[2019-01-16] MEDS ORDERED: diphenhydrAMINE INJ 50 MG/ML VIAL IVP STA (16:51)
[2019-01-16] MEDS ORDERED: VANCOMYCIN PER PHARMACY 100 GM in SODIUM CHLORIDE 0.9% 250 ML IV SCH (17:00)
[2019-01-16] MEDS ORDERED: CEFEPIME 2 GM in SODIUM CHLORIDE 0.9% MINIBAG 100 ML IV SCH (17:00)
--- NOTE | 2019-01-16 17:51 | HISTORY & PHYSICAL EXAMINATION ---
Chief Complaint - Chief Complaint Chief Complaint: Fever History of Present Illness - Admitted From Admitted From:: Home - History Obtained From Records Reviewed: Yes History obtained from: Patient and Oncology records - History of Present Illness HPI Comment/Other: This is a very pleasant 28yo female who presents today with a sore throat, recorded fever of 103F at home, and headache. She has a recent diagnosis of Left breast infiltrating ductal carcinoma, ER+, UT 5% +, Ki-67 high, HER2 negative. She is s/p a L mastectomy on 12/06/2018. Pathologic stage T3N1a. She is 6 days post her first cycle of dose-dense Adriamycin and Cytoxan. She has tolerated the chemo quite well with mild nausea well controlled with antiemetics at home, mild headaches and "fogginess". She denies any recent sick contacts. She does have a 3year old son who attends daycare. Other PMH includes depression, anxiety (never experienced panic attacks) and anemia. 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 Her father is alive and well. She is one of 6 siblings in her family all of whom are healthy. She has 1 3 year old child who is healthy. Living arrangement: At home Living Situation: With spouse/s.o. Social History Notes: She has been to her Cornelio for 3 years. Together the have a 1year old son, Antoni. 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 - Substance History Use: Uses substance without health or social issues: NONE, Other (previous occassional use of alcohol but quit since breast CA diagnosis; occassional use of CBD oil orally) Abuse: Recurrent use of substance despite neg consequences: NONE Dependence: Experiences withdrawal or developed tolerances: NONE - POLST Patient has POLST: No Meds/Allgy - Home Medications Home Medications: Ambulatory Orders Medication Instructions Recorded Confirmed Bupropion HCl [Bupropion Xl] 150 mg PO DAILY 12/05/18 01/10/19 Acetaminophen [Tylenol] 325 mg PO Q6HR PRN 01/10/19 01/10/19 - Allergies Allergies/Adverse Reactions: Allergies Allergy/AdvReac Type Severity Reaction Status Date / Time gabapentin AdvReac Headache Verified 01/16/19 14:38 Review of Systems - Constitutional Constitutional: reports: Fever, Chills - Eyes Eyes: reports: Vision loss, Corrective lenses - Ears, Nose & Throat Ears, Nose & Throat: reports: Sore throat - Gastrointestinal Gastrointestinal: reports: Nausea - Genitourinary Genitourinary: reports: Flank pain (she attributes this to currently menst ruating) - Musculoskeletal Musculoskeletal: reports: Back pain (low back pain, she attributes to current menstruation), Stiffness (neck) - Neurological Neurological: reports: Headache, Other (fogginess) - Psychiatric Psychiatric: reports: Depression, Anxiety. denies: Suicidal - Hematologic/Lymphatic Hematologic/Lymphatic: reports: Anemia - All Other Systems All Other Systems: reports: Reviewed and negative Prior Level of Functionality: Independent in all ADLs and IADLS Exam - Vital Signs Reviewed Vital Signs: Yes Vital Signs: Vital Signs x48h Temp Pulse Resp BP Pulse Ox 01/16/19 16:19 37.3 C 101 H 14 124/78 99 01/16/19 14:34 37.3 C 111 H 14 128/77 100 - Physical Exam General Appearance: positive: No acute distress, Alert Eyes Bilateral: positive: Normal inspection, PERRL, EOMI, No lid inflammation, Conjunctivae nml, No scleral icterus Neck: positive: Nml inspection, Thyroid nml, No JVD, Trachea midline, Other (pharynx with slight erythema. Tonsils bilat 1+. No exudates.). negative: Lymphadenopathy (R), Lymphadenopathy (L), Stiff neck (No meningeal signs) Respiratory: positive: Chest non-tender, No respiratory distress, Other (Lungs CTA, but diminished on the R middle and base) Cardiovascular: positive: Regular rate & rhythm, No murmur, No gallop Peripheral Pulses: positive: 2+ Abdomen: positive: Non-tender, No organomegaly, Nml bowel sounds, No distention. negative: Tenderness, Guarding, Rebound Back: positive: Nml inspection. negative: CVA tenderness (R), CVA tenderness (L) Skin: positive: Color nml, No rash, Warm, Dry. negative: Diaphoresis, Pallor, Skin rash Extremities: positive: Non-tender, Full ROM, Nml appearance, No pedal edema. negative: Calf tenderness, Naomi's sign/cords Neurologic/Psychiatric: positive: Oriented x3, CN's nml (2-12), Motor nml, Sensation nml, Mood/affect nml Comments/Other: Single lumen port a cath accessed with no signs of infection, nontender, without erythema. Conclusion/Plan - Problem List (1) Neutropenic fever Conclusion/Plan: In setting of severe neutropenia with WBC 0.5 and neutrophils O. Fever of 103F at home, no documented fever in ED. 2 sets of blood cultures (1 from PAC, 1 peripheral) were drawn in the ED. Rapid strep test neg. UA negative. 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 She was scheduled for an appointment with Rachael Dixon for a toxicity check-up at the [facility] tomorrow. 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, ativan and compazine -Tylenol for COLBY or fever >38 Qualifiers: Breast location: unspecified site of breast Estrogen receptor status: u nspecified Patient sex: female Qualified Code(s): C50.912 - Malignant neoplasm of unspecified site of left female breast - Lab Results Lab results reviewed: Yes Fish Bones: 01/16/19 15:11 01/16/19 15:11 Other Lab Results: Laboratory Results - last 24 hr 01/16/19 01/16/19 01/16/19 15:11 15:11 15:11 WBC 0.5 L* RBC 3.67 L Hgb 10.8 L Hct 32.6 L MCV 88.8 MCH 29.4 MCHC 33.1 RDW 11.5 L Plt Count 167 MPV 9.5 Neut # (Auto) 0.0 L* Lymph # (Auto) 0.4 L [place] # (Auto) 0.0 Eos # (Auto) 0.1 Baso # (Auto) 0.0 Absolute Nucleated RBC 0.00 Nucleated RBC % 0.0 Manual Slide Review Indicated Platelet Estimate NORMAL (130-450,000) Platelet Morphology NORMAL APPEARANCE RBC Morph Micro Appear NORMAL APPEARANCE Sodium 133 L Potassium 4.0 Chloride 98 L Carbon Dioxide 24 Anion Gap 11.0 BUN 9 Creatinine 0.7 Estimated GFR (MDRD) 100 Glucose 113 H Lactic Acid 1.1 Calcium 9.2 Total Bilirubin 0.7 AST 11 ALT 11 Alkaline Phosphatase 55 Total Protein 7.9 Albumin 4.5 Globulin 3.4 Albumin/Globulin Ratio 1.3 Lipase 21 L Urine Color Urine Clarity Urine pH Ur Specific [place] Urine Protein Urine Glucose (UA) Urine Ketones Urine Occult Blood Urine Nitrite Urine Bilirubin Urine Urobilinogen Ur Leukocyte Esterase Urine RBC Urine WBC Ur Squamous Epith Cells Urine Bacteria Ur Microscopic Review Urine Culture Comments Infectious [place] Assay Group A Strep Rapid 01/16/19 01/16/19 01/16/19 15:11 15:47 Unknown WBC RBC Hgb Hct MCV MCH MCHC RDW Plt Count MPV Neut # (Auto) Lymph # (Auto) [place] # (Auto) Eos # (Auto) Baso # (Auto) Absolute Nucleated RBC Nucleated RBC % Manual Slide Review Platelet Estimate Platelet Morphology RBC Morph Micro Appear Sodium Potassium Chloride Carbon Dioxide Anion Gap BUN Creatinine Estimated GFR (MDRD) Glucose Lactic Acid Calcium Total Bilirubin AST ALT Alkaline Phosphatase Total Protein Albumin Globulin Albumin/Globulin Ratio Lipase Urine Color YELLOW Urine Clarity HAZY Urine pH 6.5 Ur Specific [place] <=1.005 Urine Protein NEGATIVE Urine Glucose (UA) NEGATIVE Urine Ketones NEGATIVE Urine Occult Blood LARGE H Urine Nitrite NEGATIVE Urine Bilirubin NEGATIVE Urine Urobilinogen 0.2 (NORMAL) Ur Leukocyte Esterase NEGATIVE Urine RBC 6-10 H Urine WBC 0-3 Ur Squamous Epith Cells FEW Squamous Urine Bacteria None Seen Ur Microscopic Review INDICATED Urine Culture Comments NOT INDICATED Infectious [place] Assay NEGATIVE Group A Strep Rapid Negative Core Measures - Anticipated LOS I expect patient to be DC'd or transferred within 96 hours.: Yes - DVT/VTE - Prophylaxis VTE/DVT Device ordered at admit?: Yes
[2019-01-16] MEDS: SODIUM CHLORIDE 0.9% 1,000 ML IV SCH (18:37)
[2019-01-16] MEDS: SODIUM CHLORIDE FLUSH 0.9% 10 ML SYRINGE IVP SCH (18:37)
[2019-01-16] MEDS: ACETAMINOPHEN 325 MG TABLET PO PRN (18:48)
--- NOTE | 2019-01-16 19:04 | HISTORY & PHYSICAL EXAMINATION ---
DATE OF SERVICE: 01/16/2019 Physician: Lucia Manrique MD ONCOLOGIST: Pavithra Moncada MD, [facility] - Oncology. PRIMARY CARE PROVIDER: [facility]. CHIEF COMPLAINT: Fever in a patient who has had chemotherapy. HISTORY OF PRESENT ILLNESS: Patient is a 28-year-old female who presented with a breast mass earlier this summer. On 12/07, she underwent a modified left radical mastectomy. She has been followed by Dr. Pavithra Moncada from [facility]. Final pathology is a left breast infiltrating ductal carcinoma, ER strongly positive, NC 5% positive, Ki-67 high, HER2/abisai negative. Her tumor was 7.5 cm, grade 2, positive for skin or nipple involvement with extensive lymphovascular invasion identified. Axillary lymph nodes 2/5 positive for mets, with the largest measuring 2.2 cm with extranodal extension. She has a pathologic stage T3N1a. She started dense dose Adriamycin, Cytoxan on 01/10. She is to see Rachael Dixon, from the [facility], for a toxicity check tomorrow. Unfortunately, over the last 24 hours, she has developed fever, headache, sore throat. On review of systesm, she denies pulmonary, abdominal, or symptomatology. She has no new body rashes. She presented to the emergency room. Fever at home was 103. Fever in the emergency room was 36.5. Within 3 hours of being in the emergency room, however, her temperature went up to 38.7. She is slightly tachycardic at 101- 111. She is 99%-100% on room air. Laboratory studies show her to be mildly hyponatremic at 133. Lactic acid is 1.1. She has 0.5 white cell count with 0 neutrophils and 0.4 lymphocytes. Urinalysis has a large amount of blood in a patient who started menstruating. Leukocyte esterase negative. [place] SA negative, group A Rapid Strep is negative. Liver enzymes normal. She is now brought into the hospital for treatment of neutropenic fever. PAST MEDICAL HISTORY 1. Breast cancer as above. 2. She is G1, P1. 3. Depression with anxiety. ALLERGIES: NO KNOWN DRUG ALLERGIES. MEDICATIONS Medications on admission include: 1. Tylenol 325 mg p.o. every 6 hours, sometimes 2 tablets. 2. Bupropion hydrochloride extended release 150 mg tablets daily. 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 She is to an active duty [employer] . They have 1 child together. She denies any history of smoking. She has no history of alcohol abuse. She has no history of recreational substance abuse. PREVIOUS LEVEL OF FUNCTION: That of an independent white female who is able to do her activities of daily living with regard to bathing, eating, cleaning, driving, paying bills. She has definitely lost some energy and has some foggy thinking over the last week, but is still independent. They have a small toddler at home. FAMILY HISTORY 1. Dad is healthy and alive in his 50s. 2. Mom at age 52 of diabetes and cirrhosis. 3. Five siblings are completely healthy without high blood pressure, cholesterol, diabetes, cancer, or thyroid disease. 4. Her toddler son is healthy. REVIEW OF SYSTEMS HEENT: ENT positive for sore throat, fever; foggy thinking. PULMONARY: Negative for cough, congestion, hemoptysis. CARDIAC: Negative for palpitations, orthopnea, edema, decreased cardiovascular endurance. GASTROINTESTINAL: Negative for abdominal pain, diarrhea, change in bowel habits. GENITOURINARY: Negative for dysuria, urgency, frequency, but she has bilateral flank pain that she attributes to when she gets her period. She says that is where she usually has pain. GYNECOLOGIC: Menstruating, no unexpected vaginal discharge. SKIN: No rashes. No petechiae. No pruritus. JOINTS: Denies joint effusions, joint pain. PSYCHIATRIC: Definitely anxious with all of this. She says that she is handling it, and it has not overwhelmed her as of yet. She is worried about her kid. Not suicidal. CENTRAL NERVOUS SYSTEM: No seizures. No headache. No loss of consciousness. No focal neurological deficits. While memory is foggy, thought process is foggy, is still intact. PHYSICAL EXAMINATION Her is at the bedside. VITAL SIGNS: Temperature is 38.7 on med/surg with a pulse of 108, blood pressure 112/63, respirations 20, and 100% on room air. GENERAL: She is a slender female who looks her stated age, well- groomed, well-nourished, in no acute distress. HEENT: Normocephalic, atraumatic skull. Normal facial symmetry. Normal speech patterns. Pupils reactive. Sclerae are nonicteric. The back of the throat has bilateral tonsils present behind the anterior tonsillar fold. She has very small punctate ulcerations with no exudate on both tonsils. Posterior pharynx without cobblestoning. Tongue midline. Oral mucosa moist. No lesions. NECK: Supple without adenopathy, goiter, or bruits. LUNGS: Clear to auscultation and percussion without crackles, rhonchi, or wheezing. No increased respiratory effort. CARDIOVASCULAR: PMI normally placed, slightly tachycardic, with a regular rate and rhythm. No murmurs, rubs, or gallops. ABDOMEN: Soft, nontender. Normal bowel sounds. No hepatosplenomegaly. No tenderness. EXTREMITIES: Warm. No clubbing, cyanosis, or edema. Examination of the fingernails, web spaces without any petechiae. NEUROLOGIC: She is alert and oriented to person, place, and time. Cranial nerves II-XII appear grossly intact. Her speech is normal. Thought process is normal. She has no focal neurological changes or deficits. She is able to sit up on her own, transfer, and stand. LABORATORY DATA: Reviewed in history of present illness. ASSESSMENT AND PLAN 1. A 28-year-old female with infiltrating breast cancer, large tumor size with positive lymph nodes, on Adriamycin, Cytoxan. Prechemotherapy echocardiogram was normal. Now with neutropenic fever 6 days after starting chemotherapy. PLAN: a. Inpatient admission. b. ATTESTATION: Patient will be discharged within 96 hours. c. Neutropenic diet and precautions. d. Empiric antibiotic therapy per [place] antibiotic guide to include cefepime and vancomycin. e. Source at this time is not identified for the fever. Her line appears intact with no fluctuation around the skin. UA is negative other than her menstrual blood. Lungs are clear. f. Chest x-ray will be reviewed once done. 2. Sore throat with a negative Monospot and negative Strep screen. a. We will continue to monitor physical examination to see if there is any change or exudate. 3. FULL CODE STATUS. 4. Deep venous thrombosis prophylaxis will be MARK win. TD: 01/16/2019 18:39 [facility]
--- NOTE | 2019-01-16 21:28 | XRAY Report ---
Reason: fever, ANC 0 Procedure Date: 01/16/2019 Accession Number: [id number] / [id number] Procedure: XR - Chest 1 View X-Ray CPT Code: 49265 FULL RESULT: EXAM: CHEST RADIOGRAPHY EXAM DATE: 01/16/2019 06:14 PM. CLINICAL HISTORY: Fever, ANC 0. COMPARISON: CHEST 1 VIEW 12/27/2018 10:52 AM CHEST W/ 01/05/2019 10:47 AM. TECHNIQUE: 1 view. FINDINGS: Lungs/Pleura: No focal opacities evident. No pleural effusion. No pneumothorax. Mediastinum: Heart size and mediastinal contour are stable. Other: Right-sided Port-A-Cath, unchanged. Surgical clips in the left axilla, stable. Changes from left mastectomy again evident. IMPRESSION: 1. No acute disease in the chest. RADIA
[2019-01-16] MEDS: CEFEPIME 2 GM in SODIUM CHLORIDE 0.9% MINIBAG 100 ML IV SCH (21:56)
[2019-01-17] MEDS: ACETAMINOPHEN 325 MG TABLET PO PRN ×4 (00:03→20:35)
[2019-01-17] MEDS: SODIUM CHLORIDE FLUSH 0.9% 10 ML SYRINGE IVP SCH ×3 (00:04→18:02)
[2019-01-17] MEDS: VANCOMYCIN INJ 1 GM in SODIUM CHLORIDE 0.9% 250 ML IV SCH ×2 (01:20→08:23)
[2019-01-17] MEDS: BENZOCAINE/MENTHOL LOZENGE MM PRN ×3 (05:31→12:43)
[2019-01-17] MEDS: CEFEPIME 2 GM in SODIUM CHLORIDE 0.9% MINIBAG 100 ML IV SCH ×3 (05:32→21:32)
[2019-01-17] MEDS: SODIUM CHLORIDE 0.9% 1,000 ML IV SCH ×2 (05:32→17:58)
[2019-01-17 06:09] LABS: BASOPHILS % (AUTO) 1.3 %; EOSINOPHILS % (AUTO) 7.6 %; HGB - HEMOGLOBIN 8.3 g/dL (12.0-16.0); LYMPHOCYTES % (AUTO) 73.4 %; MEAN CORPUSCULAR HEMOGLOBIN 28.8 pg (27.0-31.0); MEAN CORPUSCULAR HGB CONC 32.5 g/dL (32.0-36.0); MEAN CORPUSCULAR VOLUME 88.5 fL (81.0-99.0); MONOCYTES % (AUTO) 7.6 %; NEUTROPHILS % (AUTO) 8.8 %; PLT - PLATELET COUNT 134 10^3/uL (130-450); RED BLOOD COUNT 2.88 10^6/uL (4.20-5.40); RED CELL DISTRIBUTION WIDTH 11.5 % (12.0-15.0)
[2019-01-17 06:16] LABS: WHITE BLOOD COUNT 0.8 x10^3/uL (4.8-10.8)
[2019-01-17 06:17] LABS: ABNORMAL LYMPHS % (MANUAL) 0 %; BAND NEUTROPHILS % (MANUAL) 0 %
[2019-01-17 06:26] LABS: ALBUMIN 3.5 g/dL (3.2-5.5); ALBUMIN/GLOBULIN RATIO 1.3 (1.0-2.2); ALKALINE PHOSPHATASE 38 IU/L (42-121); ALT ALANINE AMINOTRANSFERASE < 10 IU/L (10-60); AST ASPARTATE AMINOTRANSFERASE < 10 IU/L (10-42); BILIRUBIN,TOTAL 0.8 mg/dL (0.2-1.0); BUN - BLOOD UREA NITROGEN 5 mg/dL (6-20); CALCIUM 8.1 mg/dL (8.5-10.3); CARBON DIOXIDE - CO2 22 mmol/L (21-32); CHLORIDE 104 mmol/L (101-111); CREATININE 0.6 mg/dL (0.4-1.0); GFR - MDRD 120 (>89); GLUCOSE 111 mg/dL (70-100); SODIUM 137 mmol/L (135-145); TOTAL PROTEIN 6.1 g/dL (6.7-8.2)
[2019-01-17 06:41] LABS: BASOPHILS % (MANUAL) 3 %; LYMPHOCYTES # (MANUAL) 0.7 10^3/uL (1.5-3.5); LYMPHOCYTES % (MANUAL) 84 %; RBC MORPHOLOGY (MULTIPLE) NORMAL APPEARANCE (NORMAL)
[2019-01-17 06:43] LABS: DIFFERENTIAL COMMENT MANUAL DIFFERENTIAL; PLATELET ESTIMATE, MANUAL NORMAL (130-450,000) (NORMAL); PLATELET MORPHOLOGY NORMAL APPEARANCE (NORMAL)
[2019-01-17] MEDS: POLYETHYLENE GLYCOL 3350 17 GM PACKET PO SCH (08:23)
--- NOTE | 2019-01-17 11:22 | PROVIDER PROGRESS NOTE ---
Assessment/Plan - Problem List (1) Neutropenic fever Assessment/Plan: Appreciate the oncology input. Plan to continue empiric IV antibiotics until she is 24 hours without a fever or unless a source of an infection is found. This was reviewed with patient, she is aware of this plan (2) Breast cancer, left breast Qualifiers: Breast location: unspecified site of breast Estrogen receptor status: unspecified Patient sex: female Qualified Code(s): C50.912 - Malignant neoplasm of unspecified site of left female breast Assessment/Plan: Status post first round of chemotherapy which caused leukopenia. (3) Depression Assessment/Plan: Will restart her daily Bupropion XL 150 mg daily. (4) Anemia Assessment/Plan: Her Oncologist is aware of this and did not recommend a transfusion, as per her progress Note. We will follow CBC daily (5) Headache Assessment/Plan: Patient thinks it is from lack of sleep, stress and the fever. Will add narcotics to her Tylenol, which is not controlling her pain. She also needs a dark room to sleep, will order eye mask. - Current Meds Current Meds: Current Medications Generic Name Dose Route Start Last Admin Trade Name Freq PRN Reason Stop Dose Admin Acetaminophen 650 mg 01/16/19 16:30 01/17/19 08:36 Tylenol PO 650 mg Q4HR PRN Administration Pain 1 to 4 Sodium Chloride 1,000 mls @ 100 mls/hr 01/16/19 17:00 01/17/19 06:10 Normal Saline 0.9% IV 100 mls/hr .Q10H SARA Infusion Cefepime HCl 2 gm/ Sodium 100 mls @ 200 mls/hr 01/16/19 22:00 01/17/19 06:28 Chloride IV Infused Q8HR SARA Infusion Vancomycin HCl 1 gm/ Sodium 250 mls @ 167 mls/hr 01/17/19 01:00 01/17/19 10:12 Chloride IV Infused Q8H SARA Infusion Polyethylene Glycol 17 gm 01/17/19 09:00 01/17/19 08:23 Miralax PO Not Given DAILY SARA Sodium Chloride 10 ml 01/16/19 17:00 01/17/19 08:24 Normal Saline Flush 0.9% IVP Not Given 0100,0900,1700 SARA Throat Lozenges 1 lozenge 01/17/19 01:29 01/17/19 08:36 Cepacol MM 1 lozenge Q2HR PRN Administration Mouth Sore Pain - Lab Result Fish Bone Diagrams: 01/17/19 05:50 01/17/19 05:50 - Additional Planning My Orders: My Active Orders 01/17/19 12:00 buPROPion [Wellbutrin Xl] 150 mg PO DAILY Subjective - Subjective Patient Reports: Headache, Other (Cannot sleep due to light on continuously in room) Objective Vital Signs: Vital Signs - 24 hr 01/16/19 01/16/19 01/16/19 14:34 16:19 17:49 Temperature 37.3 C 37.3 C 38.7 C H Heart Rate 111 H 101 H Heart Rate [ 108 H Brachial] Respiratory 14 14 20 Rate Blood Pressure 128/77 124/78 Blood Pressure 112/63 [Right Brachial artery] O2 Saturation 100 99 100 01/16/19 01/16/19 01/16/19 19:30 20:03 23:51 Temperature 37.7 C H 37.7 C H 37.7 C H Heart Rate 100 Heart Rate [ 92 Brachial] Respiratory 16 17 Rate Blood Pressure Blood Pressure 120/72 [Right Brachial artery] O2 Saturation 99 100 01/17/19 08:00 Temperature 38.2 C H Heart Rate Heart Rate [ 110 H Brachial] Respiratory 16 Rate Blood Pressure Blood Pressure 113/65 [Right Brachial artery] O2 Saturation 100 Oxygen O2 Source Room air I&O (Last 24 Hrs): Intake and Output Totals x24h 01/15/19 01/16/19 01/17/19 23:59 23:59 23:59 Intake Total 1999.000 1870.000 Balance 1999. 1870.000 General: Alert, Oriented x3 HEENT: Mucous membr. moist/pink Neck: Supple Neuro: Alert Cardiovascular: Regular rate Respiratory: No respiratory distress Abdomen: Soft Extremities: No edema - Results Results: Laboratory Results WBC 0.8 x10^3/uL (4.8-10.8) L* 01/17/19 05:50 RBC 2.88 10^6/uL (4.20-5.40) L 01/17/19 05:50 Hgb 8.3 g/dL (12.0-16.0) L 01/17/19 05:50 Hct 25.5 % (37.0-47.0) L 01/17/19 05:50 MCV 88.5 fL (81.0-99.0) 01/17/19 05:50 MCH 28.8 pg (27.0-31.0) 01/17/19 05:50 MCHC 32.5 g/dL (32.0-36.0) 01/17/19 05:50 RDW 11.5 % (12.0-15.0) L 01/17/19 05:50 Plt Count 134 10^3/uL (130-450) 01/17/19 05:50 MPV 9.0 fL (7.9-10.8) 01/17/19 05:50 Neut # (Auto) Not Reportable 01/17/19 05:50 Lymph # (Auto) Not Reportable 01/17/19 05:50 [place] # (Auto) Not Reportable 01/17/19 05:50 Eos # (Auto) Not Reportable 01/17/19 05:50 Baso # (Auto) Not Reportable 01/17/19 05:50 Absolute Nucleated RBC Not Reportable 01/17/19 05:50 Total Counted 100 01/17/19 05:50 Band Neuts % (Manual) 0 % (0-10) 01/17/19 05:50 Abnorm Lymph % (Manual) 0 % 01/17/19 05:50 Nucleated RBC % Not Reportable 01/17/19 05:50 Neutrophils # (Manual) 0.0 10^3/uL (1.5-6.6) L* 01/17/19 05:50 Lymphocytes # (Manual) 0.7 10^3/uL (1.5-3.5) L 01/17/19 05:50 Monocytes # (Manual) 0.0 10^3/uL (0.0-1.0) 01/17/19 05:50 Eosinophils # (Manual) 0.0 10^3/uL (0-0.7) 01/17/19 05:50 Basophils # (Manual) 0.0 10^3/uL (0-0.1) 01/17/19 05:50 Differential Comment MANUAL DIFFERENTIAL 01/17/19 05:50 Manual Slide Review Indicated 01/16/19 15:11 WBC Morphology NORMAL APPEARANCE (NORMAL) 01/17/19 05:50 Platelet Estimate NORMAL (130-450,000) (NORMAL) 01/17/19 05:50 Platelet Morphology NORMAL APPEARANCE (NORMAL) 01/17/19 05:50 RBC Morph Micro Appear NORMAL APPEARANCE (NORMAL) 01/17/19 05:50 Sodium 137 mmol/L (135-145) 01/17/19 05:50 Potassium 3.7 mmol/L (3.5-5.0) 01/17/19 05:50 Chloride 104 mmol/L (101-111) 01/17/19 05:50 Carbon Dioxide 22 mmol/L (21-32) 01/17/19 05:50 Anion Gap 11.0 (6-13) 01/17/19 05:50 BUN 5 mg/dL (6-20) L 01/17/19 05:50 Creatinine 0.6 mg/dL (0.4-1.0) 01/17/19 05:50 Estimated GFR (MDRD) 120 (>89) 01/17/19 05:50 Glucose 111 mg/dL (70-100) H 01/17/19 05:50 Lactic Acid 1.1 mmol/L (0.5-2.2) 01/16/19 15:11 Calcium 8.1 mg/dL (8.5-10.3) L 01/17/19 05:50 Total Bilirubin 0.8 mg/dL (0.2-1.0) 01/17/19 05:50 AST < 10 IU/L (10-42) L 01/17/19 05:50 ALT < 10 IU/L (10-60) L 01/17/19 05:50 Alkaline Phosphatase 38 IU/L (42-121) L 01/17/19 05:50 Total Protein 6.1 g/dL (6.7-8.2) L 01/17/19 05:50 Albumin 3.5 g/dL (3.2-5.5) 01/17/19 05:50 Globulin 2.6 g/dL (2.1-4.2) 01/17/19 05:50 Albumin/Globulin Ratio 1.3 (1.0-2.2) 01/17/19 05:50 Lipase 21 U/L (22-51) L 01/16/19 15:11 Urine Color YELLOW 01/16/19 Unknown Urine Clarity HAZY (CLEAR) 01/16/19 Unknown Urine pH 6.5 PH (5.0-7.5) 01/16/19 Unknown Ur Specific [place] <=1.005 (1.002-1.030) 01/16/19 Unknown Urine Protein NEGATIVE mg/dL (NEGATIVE) 01/16/19 Unknown Urine Glucose (UA) NEGATIVE mg/dL (NEGATIVE) 01/16/19 Unknown Urine Ketones NEGATIVE mg/dL (NEGATIVE) 01/16/19 Unknown Urine Occult Blood LARGE (NEGATIVE) H 01/16/19 Unknown Urine Nitrite NEGATIVE (NEGATIVE) 01/16/19 Unknown Urine Bilirubin NEGATIVE (NEGATIVE) 01/16/19 Unknown Urine Urobilinogen 0.2 (NORMAL) E.U./dL (NORMAL) 01/16/19 Unknown Ur Leukocyte Esterase NEGATIVE (NEGATIVE) 01/16/19 Unknown Urine RBC 6-10 /HPF (0-5) H 01/16/19 Unknown Urine WBC 0-3 /HPF (0-5) 01/16/19 Unknown Ur Squamous Epith Cells FEW Squamous (<= Few) 01/16/19 Unknown Urine Bacteria None Seen /HPF (None Seen) 01/16/19 Unknown Ur Microscopic Review INDICATED 01/16/19 Unknown Urine Culture Comments NOT INDICATED 01/16/19 Unknown Infectious [place] Assay NEGATIVE (Negative) 01/16/19 15:11 Group A Strep Rapid Negative (Negative) 01/16/19 15:47 - Procedures Procedures: Procedures INSERT VAD RESERVOIR IN CHEST SUBCU/FASCIA, PERC (12/27/18) INSERTION OF INFUSION DEV INTO SUP VENA CAVA, PERC APPROACH (12/27/18) RESECTION OF LEFT AXILLARY LYMPHATIC, OPEN APPROACH (12/06/18) RESECTION OF LEFT BREAST, OPEN APPROACH (12/06/18)
[2019-01-17] MEDS: buPROPion XL 150 MG TABLET PO SCH (11:59)
--- NOTE | 2019-01-17 15:44 | ONCOLOGY / HEMATOLOGY ---
DATE OF SERVICE: 01/17/2019 Physician: Katerin Moncada MD DIAGNOSES 1. Left breast infiltrating ductal carcinoma, ER strongly positive, AR 5% positive, Ki-67 high, HER2 negative. Status post left modified radical mastectomy on 12/06/2018, with 7.5 cm tumor, grade 2 po sitive for skin and nipple involvement and extensive lymphovascular invasion. 2/5 axillary lymph nod es were positive for metastases with the largest one measuring 2.2 cm with extranodal extension. Pat hologic stage T3 N1a. 2. Status post cycle 1 adjuvant chemotherapy with dose-dense AC on 01/10/2019. 3. Neutropenic fever requiring hospitalization. 4. Pancytopenia secondary to chemotherapy. INTERVAL HISTORY/HISTORY OF PRESENT ILLNESS: The patient called yesterday with a fever of 103 degrees . She later checked herself into the ER and was admitted for neutropenic fever. Her WBC was low at 0.5 yesterday. Neutrophil was 0. Of note, she received her Neulasta on 01/10/2019 after she had her chemotherapy. PAST, FAMILY AND SOCIAL HISTORY: History of anxiety/depression. Her , Cornelio, was in the ro om with her. He is retiring from the [employer] in the next few months and is looking for a job in [place]. They might move there. PHYSICAL EXAMINATION VITAL SIGNS: Per chart. Afebrile, temperature 36.2. The rest of the vitals stable. She appears co mfortable, sitting in the chair in the room. No alopecia. No skin rash. No jaundice. No bruises. LEGS: No edema. NEUROLOGIC: She is alert and oriented. LABORATORY DATA: CBC from today her total WBC was 0.8, hemoglobin 8.3, platelet count at 134, neutro shahrzad count was 0. UA was negative for UTI. Chest x-ray was negative for any acute pulmonary process. Chemistry panel was unremarkable. ASSESSMENT AND PLAN 1. Left breast cancer, status post cycle 1 adjuvant chemotherapy with AC. She is due for cycle 2 tr eatment in a week on 01/20/2019. 2. Neutropenic fever secondary to chemo. The patient already received Neulasta a week ago. She sanchez s not need any G-CSF support during this hospitalization. We will continue to check her CBC on a aniyah ly basis. She does not need blood transfusions for now. 3. Neutropenic fever. She will continue with the current IV antibiotics and other supportive care p er team. Followup in a week. TD: 01/17/2019 13:04
[2019-01-17 17:02] LABS: VANCOMYCIN,TROUGH 8.4 ug/mL (10.0-20.0)
[2019-01-17] MEDS ORDERED: VANCOMYCIN INJ 1 GM, VANCOMYCIN INJ 250 MG in SODIUM CHLORIDE 0.9% 250 ML IV SCH (18:00)
[2019-01-17] MEDS: VANCOMYCIN INJ 1 GM, VANCOMYCIN INJ 250 MG in SODIUM CHLORIDE 0.9% 250 ML IV SCH (18:08)
[2019-01-17] MEDS: LORazepam 0.5 MG TABLET PO PRN (21:31)
[2019-01-18] MEDS: BENZOCAINE/MENTHOL LOZENGE MM PRN ×2 (00:25→10:34)
[2019-01-18] MEDS: ACETAMINOPHEN 325 MG TABLET PO PRN ×3 (00:46→10:33)
[2019-01-18] MEDS: SODIUM CHLORIDE FLUSH 0.9% 10 ML SYRINGE IVP SCH ×2 (01:59→08:33)
[2019-01-18] MEDS: VANCOMYCIN INJ 1 GM, VANCOMYCIN INJ 250 MG in SODIUM CHLORIDE 0.9% 250 ML IV SCH ×2 (02:17→09:31)
[2019-01-18] MEDS: CEFEPIME 2 GM in SODIUM CHLORIDE 0.9% MINIBAG 100 ML IV SCH (05:55)
[2019-01-18 06:31] LABS: BASOPHILS % (AUTO) 1.5 %; EOSINOPHILS % (AUTO) 7.7 %; HGB - HEMOGLOBIN 8.3 g/dL (12.0-16.0); LYMPHOCYTES % (AUTO) 58.5 %; MEAN CORPUSCULAR HGB CONC 33.2 g/dL (32.0-36.0); MEAN CORPUSCULAR VOLUME 90.3 fL (81.0-99.0); MEAN PLATELET VOLUME 9.7 fL (7.9-10.8); MONOCYTES % (AUTO) 9.7 %; NEUTROPHILS % (AUTO) 14.4 %; PLT - PLATELET COUNT 127 10^3/uL (130-450); RED BLOOD COUNT 2.77 10^6/uL (4.20-5.40); RED CELL DISTRIBUTION WIDTH 11.2 % (12.0-15.0)
[2019-01-18 06:36] LABS: ABNORMAL LYMPHS % (MANUAL) 0 %; BAND NEUTROPHILS % (MANUAL) 0 %
[2019-01-18 06:49] LABS: ALBUMIN 3.5 g/dL (3.2-5.5); ALBUMIN/GLOBULIN RATIO 1.3 (1.0-2.2); ALKALINE PHOSPHATASE 38 IU/L (42-121); ALT ALANINE AMINOTRANSFERASE < 10 IU/L (10-60); AST ASPARTATE AMINOTRANSFERASE 11 IU/L (10-42); BILIRUBIN,TOTAL 0.3 mg/dL (0.2-1.0); BUN - BLOOD UREA NITROGEN < 5 mg/dL (6-20); CALCIUM 8.3 mg/dL (8.5-10.3); CARBON DIOXIDE - CO2 23 mmol/L (21-32); CHLORIDE 107 mmol/L (101-111); CREATININE 0.6 mg/dL (0.4-1.0); GFR - MDRD 120 (>89); GLUCOSE 92 mg/dL (70-100); SODIUM 139 mmol/L (135-145); TOTAL PROTEIN 6.3 g/dL (6.7-8.2)
[2019-01-18 07:04] LABS: DIFFERENTIAL COMMENT MANUAL DIFFERENTIAL; EOSINOPHILS # (MANUAL) 0.1 10^3/uL (0-0.7); LYMPHOCYTES # (MANUAL) 1.1 10^3/uL (1.5-3.5); LYMPHOCYTES % (MANUAL) 55 %; MONOCYTES # (MANUAL) 0.2 10^3/uL (0.0-1.0); PLATELET ESTIMATE, MANUAL DECREASED (<130,000) (NORMAL); RBC MORPHOLOGY (MULTIPLE) NORMAL APPEARANCE (NORMAL)
[2019-01-18] MEDS: SODIUM CHLORIDE 0.9% 1,000 ML IV SCH ×2 (07:52→09:30)
[2019-01-18] MEDS: buPROPion XL 150 MG TABLET PO SCH (08:33)
[2019-01-18] MEDS: POLYETHYLENE GLYCOL 3350 17 GM PACKET PO SCH (08:33)
[2019-01-18] MEDS: LORazepam 0.5 MG TABLET PO PRN ×2 (09:49→10:34)
--- NOTE | 2019-01-18 11:57 | Discharge Plan ---
Discharge Plan Problem Reviewed?: Yes Disposition: Home, Self Care Condition: Stable Diet: Regular Activity Restrictions: Additional Comments (Use contact precautions and secretion precautions (wear a mask, gloves if needed)) Shower Restrictions: No Driving Restrictions: No Health Concerns: Fever and low blood counts after 1st round of chemo for beast cancer Plan of Treatment: Precautionary antibiotics were given, until no further fever for 24 hours and no signs of active infection. Care Goals: Resume prior medications and the plan with Oncology. Assessment: The patient is in agreement with the plan. [place] [facility] [place] (Keep Oncology appointment) No Smoking: If you smoke, Please STOP! Call for help. Follow-up with: Flory Bentley DO [Primary Care Provider] -
[2019-01-18 12:24] VITALS: BP 122/69
[2019-01-18] MEDS ORDERED: SODIUM CHLORIDE FLUSH 0.9% 10 ML SYRINGE IVP SCH (17:00)
--- NOTE | 2019-01-18 17:07 | DISCHARGE SUMMARY ---
Discharge Summary Admit Date: 01/16/19 Discharge Date: 01/18/19 Discharging Provider: Dr Aruna Collins Primary Care Provider: Dr Flory Bentley Code Status: Attempt Resuscitation Condition at Discharge: Fair Discharge Disposition: 01 Home, Self Care - DIAGNOSES Admission Diagnoses: 1) Neutropenic fever 2) Breast CA 3) Hx Depression Discharge Diagnoses with Status of Each Condition: See below - HPI History of Present Illness: As per admission H&P of Dr Manrique: This is a very pleasant 28yo female who presents today with a sore throat, recorded fever of 103F at home, and headache. She has a recent diagnosis of left breast infiltrating ductal carcinoma, ER+, MI 5% +, Ki-67 high, HER2 negative. She is s/p a L mastectomy on 12/06/2018. Pathologic stage T3N1a. She is 6 days post her first cycle of dose-dense Adriamycin and Cytoxan. She has tolerated the chemo quite well with mild nausea well controlled with antiemetics at home, mild headaches and "fogginess". She denies any recent sick contacts. She does have a 3 year old son who attends daycare. Other PMH includes depression, anxiety (never experienced panic attacks) and anemia. Work-up showed severe neutropenia with WBC 0.5 and neutrophils O. Rapid strep test neg. UA negative. CXR normal. She was admitted for management of neutropenic fever. - CONSULTS | PROCEDURES Consultations: Dr Katerin Moncada - HOSPITAL COURSE Hospital Course: (1) Neutropenic fever She had 2 sets of blood cultures drawn (1 from PAC, 1 peripheral) in the ED. She was put on empiric IV antibiotics (cefepime and Vanco) with plan to discharge when she was 24 hours without a fever or unless a source of an infection was found. Her Oncologist saw her and wrote a Consult Note. Her TNC was 0.0 >> 0.6 on the day of discharge. Her cultures were all neg. Her last fever was on 01/17/19, as such she was discharged home on 01/18/19, with recommen dations to follow strict contact and secretion precautions. She is planning to keep her Oncology appointment to have her 2nd course of chemo on 01/20/19. (2) Breast cancer, left breast Status-post first round of chemotherapy which caused leukopenia. (3) Depression She was kept on her daily Bupropion XL 150 mg daily while here. (4) Anemia Her Hgb was 10.8 >> 8.3 on the day of discharge. Her Oncologist was aware of th is and did not recommend a transfusion, as per her Consult Note. (5) Headache Patient thinks it is from lack of sleep, stress and her fever, and the Tylenol was not controlling her pain. She got one dose of Oxycodone 5mg with relief. - ALLERGIES Allergies/Adverse Reactions: Allergies Allergy/AdvReac Type Severity Reaction Status Date / Time gabapentin AdvReac Headache Verified 01/16/19 14:38 - MEDICATIONS Home Medications: Ambulatory Orders Medication Instructions Recorded Confirmed Bupropion HCl [Bupropion Xl] 150 mg PO DAILY 12/05/18 01/17/19 Acetaminophen [Tylenol] 325 mg PO Q6HR PRN 01/10/19 01/17/19 - PHYSICAL EXAM AT DISCHARGE General Appearance: positive: No acute distress Eyes Bilateral: positive: Normal inspection ENT: positive: No signs of dehydration Neck: positive: Nml inspection Respiratory: positive: No respiratory distress Cardiovascular: positive: Regular rate & rhythm Abdomen: positive: Non-tender Extremities: positive: No pedal edema - LABS Result Diagrams: 01/18/19 05:50 01/18/19 05:50 - DIAGNOSTIC IMAGING Diagnostic Imaging Results: Final report reviewed - FOLLOW UP [place] [facility] [place] - TIME SPENT Time Spent in Discharge (Minutes): 30
== END 2019-01-18 13:45 | disposition home or self-care (01) | DRG 809 ==
LOC: ED 14:00 → MS2 16:30
PROVIDERS: ADMIT Specialist; ATTEND Internal Medicine
DX: D70.1 Agranulocytosis secondary to cancer chemotherapy (principal); C77.3 Secondary and unspecified malignant neoplasm of axilla and upper limb lymph nodes; E87.1 Hypo-osmolality and hyponatremia; T45.1X5A Adverse effect of antineoplastic and immunosuppressive drugs, initial encounter; Y92.009 Unspecified place in unspecified non-institutional (private) residence as the place of occurrence of the external cause; R50.81 Fever presenting with conditions classified elsewhere; J02.9 Acute pharyngitis, unspecified; R51 Headache; R41.3 Other amnesia; D64.81 Anemia due to antineoplastic chemotherapy; D69.59 Other secondary thrombocytopenia; C50.912 Malignant neoplasm of unspecified site of left female breast; F41.8 Other specified anxiety disorders; N94.6 Dysmenorrhea, unspecified; Z17.0 Estrogen receptor positive status [ER+]; Z90.12 Acquired absence of left breast and nipple; Z79.899 Other long term (current) drug therapy; Z95.828 Presence of other vascular implants and grafts
CPT/HCPCS: 36415; 71045; 80053; 80202; 81001; 83605; 83690; 85025; 86308; 87040; 87070; 87430; 96361; 96374; 99233; 99284; 99285; A9270; J1200; J3370; 81003; 87086

== ENCOUNTER 2019-01-20 09:38 | Emergency (ER) | payer OTHER ==
[2019-01-20 10:30] LABS: BILIRUBIN,URINE NEGATIVE (NEGATIVE); GLUCOSE, URINE (UA) NEGATIVE (NEGATIVE); KETONES,URINE (UA) NEGATIVE (NEGATIVE); LEUKOCYTE ESTERASE, URINE NEGATIVE (NEGATIVE); NITRITE,URINE NEGATIVE (NEGATIVE); OCCULT BLOOD,URINE LARGE (NEGATIVE); PROTEIN,URINE NEGATIVE (NEGATIVE); UROBILINOGEN,URINE 0.2 (NORMAL) E.U./dL (NORMAL)
[2019-01-20 10:31] LABS: CLARITY,URINE CLEAR (CLEAR); HCG UR QUAL NEGATIVE
[2019-01-20 10:46] LABS: BACTERIA,URINE Rare /HPF (None Seen); RBC,URINE 0-5 /HPF (0-5); SQUAMOUS EPITHELIAL CELL,UR FEW Squamous (<= Few)
[2019-01-20 11:28] LABS: BASOPHILS # (AUTO) 0.1 10^3/uL (0.0-0.1); BASOPHILS % (AUTO) 1.1 %; EOSINOPHILS % (AUTO) 0.5 %; HGB - HEMOGLOBIN 10.2 g/dL (12.0-16.0); LYMPHOCYTES # (AUTO) 1.5 10^3/uL (1.5-3.5); LYMPHOCYTES % (AUTO) 18.3 %; MEAN CORPUSCULAR HEMOGLOBIN 30.4 pg (27.0-31.0); MEAN CORPUSCULAR HGB CONC 34.1 g/dL (32.0-36.0); MEAN CORPUSCULAR VOLUME 89.3 fL (81.0-99.0); MEAN PLATELET VOLUME 9.8 fL (7.9-10.8); MONOCYTES # (AUTO) 0.9 10^3/uL (0.0-1.0); MONOCYTES % (AUTO) 11.5 %; NEUTROPHILS # (AUTO) 4.1 10^3/uL (1.5-6.6); NEUTROPHILS % (AUTO) 50.6 %; PLT - PLATELET COUNT 206 10^3/uL (130-450); RED BLOOD COUNT 3.35 10^6/uL (4.20-5.40); RED CELL DISTRIBUTION WIDTH 11.6 % (12.0-15.0); WHITE BLOOD COUNT 8.2 x10^3/uL (4.8-10.8)
[2019-01-20 11:50] LABS: HCG,QUALITATIVE BLOOD NEGATIVE
[2019-01-20 11:51] LABS: ALBUMIN 4.3 g/dL (3.2-5.5); ALBUMIN/GLOBULIN RATIO 1.4 (1.0-2.2); ALKALINE PHOSPHATASE 51 IU/L (42-121); ALT ALANINE AMINOTRANSFERASE 12 IU/L (10-60); AST ASPARTATE AMINOTRANSFERASE 16 IU/L (10-42); BILIRUBIN,TOTAL 0.6 mg/dL (0.2-1.0); BUN - BLOOD UREA NITROGEN < 5 mg/dL (6-20); CALCIUM 9.3 mg/dL (8.5-10.3); CARBON DIOXIDE - CO2 22 mmol/L (21-32); CHLORIDE 105 mmol/L (101-111); CREATININE 0.6 mg/dL (0.4-1.0); GFR - MDRD 120 (>89); GLUCOSE 112 mg/dL (70-100); LIPASE 21 U/L (22-51); SODIUM 141 mmol/L (135-145); TOTAL PROTEIN 7.4 g/dL (6.7-8.2)
--- NOTE | 2019-01-20 11:55 | ED Physician Documentation ---
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 History is obtained from patient's who is at bedside. He states that she began acting somewhat confused last night, and stating things are not true, such as she is , she is schizophrenic, that she needs to give medications to her brother etc. Her states she has never had confusion before. She is also been disoriented and does not know the date. She does know the general area that she is in in the year. Her states that she has been pleasant, but confused and somewhat delusional. She denies any chest pain, or current fever. She does have some abdominal distention and vomited once this morning, though her thinks this is because she has not been eating well. She has had no further vomiting. She denies nausea at this time. She was hospitalized recently and discharged on 01/18 for neutropenic fever, she had negative blood cultures and was discharged without a clear cause identified. No neck stiffness or headache. She is currently only taking buproprion, denies other medications. She Previously took CBD oil, but denies current or other drug use. This is corroborated by her . 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, Other : None, Other HEENT: None Psych: Depression, Anxiety Musculoskeletal: None Derm: None - Past Surgical History /PROCESSING INSPECTOR: Other - Present Medications Home Medications: Ambulatory Orders Medication Instructions Recorded Confirmed Bupropion HCl [Bupropion Xl] 150 mg PO DAILY 12/05/18 01/17/19 Acetaminophen [Tylenol] 325 mg PO Q6HR PRN 01/10/19 01/17/19 - Allergies Allergies/Adverse Reactions: Allergies Allergy/AdvReac Type Severity Reaction Status Date / Time gabapentin AdvReac Headache Verified 01/20/19 10:03 - Social History Does the pt smoke?: No Smoking Status: Never smoker Does the pt drink ETOH?: No Does the pt have substance abuse?: No - Immunizations Immunizations are current?: Yes - POLST Patient has POLST: No PD ED PE NORMAL - Vitals Vital signs reviewed: Yes - General General: No acute distress - HEENT HEENT: PERRL - Neck Neck: Supple, no meningeal sign - Cardiac Cardiac: RRR, No murmur - Respiratory Respiratory: Clear bilaterally - Abdomen Abdomen: Normal bowel sounds, Soft, Non tender, Non distended - Derm Derm: Warm and dry - Extremities Extremities: No deformity - Neuro Neuro: Other (Disoriented to date/month, but knows the year. Knows the general place as [facility], knows her name. Is forgetful of recent events. 5 out of 5 strength in the upper and lower extremities, sensation to light touch intact over all extremities. Normal [id number] testing. Cranial nerves II through XII intact.) - Psych Psych: Normal mood Results - Vitals Vitals: Vital Signs - 24 hr 01/20/19 01/20/19 01/20/19 09:59 13:40 16:22 Temperature 36.8 C Heart Rate 110 H 99 67 Respiratory 16 19 16 Rate Blood Pressure 143/92 H 129/81 H 115/88 H O2 Saturation 100 99 97 01/20/19 18:26 Temperature 36.2 C L Heart Rate 79 Respiratory 19 Rate Blood Pressure 117/79 O2 Saturation 98 Oxygen O2 Source Room air - Labs Labs: Laboratory Tests 01/20/19 01/20/19 01/20/19 10:20 10:57 10:57 WBC 8.2 RBC 3.35 L Hgb 10.2 L Hct 29.9 L MCV 89.3 MCH 30.4 MCHC 34.1 RDW 11.6 L Plt Count 206 MPV 9.8 Neut # (Auto) 4.1 Lymph # (Auto) 1.5 [place] # (Auto) 0.9 Eos # (Auto) 0.0 Baso # (Auto) 0.1 Absolute Nucleated RBC 0.02 Nucleated RBC % 0.2 Manual Slide Review Indicated WBC Morphology NORMAL APPEARANCE Platelet Estimate NORMAL (130-450,000) Platelet Morphology NORMAL APPEARANCE RBC Morph Micro Appear 1+ POLYCHROMASIA Sodium 141 Potassium 3.5 Chloride 105 Carbon Dioxide 22 Anion Gap 14.0 H BUN < 5 L Creatinine 0.6 Estimated GFR (MDRD) 120 Glucose 112 H Lactic Acid Calcium 9.3 Total Bilirubin 0.6 AST 16 ALT 12 Alkaline Phosphatase 51 Ammonia Total Creatine Kinase Total Protein 7.4 Albumin 4.3 Globulin 3.1 Albumin/Globulin Ratio 1.4 Lipase 21 L TSH Serum HCG, Qual Urine Color LIGHT YELLOW Urine Clarity CLEAR Urine pH 7.0 Ur Specific [place] <=1.005 Urine Protein NEGATIVE Urine Glucose (UA) NEGATIVE Urine Ketones NEGATIVE Urine Occult Blood LARGE H Urine Nitrite NEGATIVE Urine Bilirubin NEGATIVE Urine Urobilinogen 0.2 (NORMAL) Ur Leukocyte Esterase NEGATIVE Urine RBC 0-5 Urine WBC 0-3 Ur Squamous Epith Cells FEW Squamous Urine Bacteria Rare Ur Microscopic Review INDICATED Urine Culture Comments NOT INDICATED Urine HCG, Qual NEGATIVE Salicylates Urine Opiates Screen Ur Oxycodone Screen Urine Methadone Screen Ur Propoxyphene Screen Acetaminophen Ur Barbiturates Screen Ur Tricyclics Screen Ur Phencyclidine Scrn Ur Amphetamine Screen U Methamphetamines Scrn U Benzodiazepines Scrn Urine Cocaine Screen U Cannabinoids Screen Ethyl Alcohol 01/20/19 01/20/19 01/20/19 10:57 10:57 10:57 WBC RBC Hgb Hct MCV MCH MCHC RDW Plt Count MPV Neut # (Auto) Lymph # (Auto) [place] # (Auto) Eos # (Auto) Baso # (Auto) Absolute Nucleated RBC Nucleated RBC % Manual Slide Review WBC Morphology Platelet Estimate Platelet Morphology RBC Morph Micro Appear Sodium Potassium Chloride Carbon Dioxide Anion Gap BUN Creatinine Estimated GFR (MDRD) Glucose Lactic Acid Calcium Total Bilirubin AST ALT Alkaline Phosphatase Ammonia Total Creatine Kinase Total Protein Albumin Globulin Albumin/Globulin Ratio Lipase TSH 1.10 Serum HCG, Qual NEGATIVE Urine Color Urine Clarity Urine pH Ur Specific [place] Urine Protein Urine Glucose (UA) Urine Ketones Urine Occult Blood Urine Nitrite Urine Bilirubin Urine Urobilinogen Ur Leukocyte Esterase Urine RBC Urine WBC Ur Squamous Epith Cells Urine Bacteria Ur Microscopic Review Urine Culture Comments Urine HCG, Qual Salicylates Urine Opiates Screen Ur Oxycodone Screen Urine Methadone Screen Ur Propoxyphene Screen Acetaminophen Ur Barbiturates Screen Ur Tricyclics Screen Ur Phencyclidine Scrn Ur Amphetamine Screen U Methamphetamines Scrn U Benzodiazepines Scrn Urine Cocaine Screen U Cannabinoids Screen Ethyl Alcohol < 5.0 01/20/19 01/20/19 01/20/19 12:00 12:13 12:13 WBC RBC Hgb Hct MCV MCH MCHC RDW Plt Count MPV Neut # (Auto) Lymph # (Auto) [place] # (Auto) Eos # (Auto) Baso # (Auto) Absolute Nucleated RBC Nucleated RBC % Manual Slide Review WBC Morphology Platelet Estimate Platelet Morphology RBC Morph Micro Appear Sodium Potassium Chloride Carbon Dioxide Anion Gap BUN Creatinine Estimated GFR (MDRD) Glucose Lactic Acid 0.7 Calcium Total Bilirubin AST ALT Alkaline Phosphatase Ammonia < 10.0 Total Creatine Kinase 33 Total Protein Albumin Globulin Albumin/Globulin Ratio Lipase TSH Serum HCG, Qual Urine Color Urine Clarity Urine pH Ur Specific [place] Urine Protein Urine Glucose (UA) Urine Ketones Urine Occult Blood Urine Nitrite Urine Bilirubin Urine Urobilinogen Ur Leukocyte Esterase Urine RBC Urine WBC Ur Squamous Epith Cells Urine Bacteria Ur Microscopic Review Urine Culture Comments Urine HCG, Qual Salicylates < 6.0 Urine Opiates Screen Ur Oxycodone Screen Urine Methadone Screen Ur Propoxyphene Screen Acetaminophen < 10 L Ur Barbiturates Screen Ur Tricyclics Screen Ur Phencyclidine Scrn Ur Amphetamine Screen U Methamphetamines Scrn U Benzodiazepines Scrn Urine Cocaine Screen U Cannabinoids Screen Ethyl Alcohol 01/20/19 15:05 WBC RBC Hgb Hct MCV MCH MCHC RDW Plt Count MPV Neut # (Auto) Lymph # (Auto) [place] # (Auto) Eos # (Auto) Baso # (Auto) Absolute Nucleated RBC Nucleated RBC % Manual Slide Review WBC Morphology Platelet Estimate Platelet Morphology RBC Morph Micro Appear Sodium Potassium Chloride Carbon Dioxide Anion Gap BUN Creatinine Estimated GFR (MDRD) Glucose Lactic Acid Calcium Total Bilirubin AST ALT Alkaline Phosphatase Ammonia Total Creatine Kinase Total Protein Albumin Globulin Albumin/Globulin Ratio Lipase TSH Serum HCG, Qual Urine Color Urine Clarity Urine pH Ur Specific [place] Urine Protein Urine Glucose (UA) Urine Ketones Urine Occult Blood Urine Nitrite Urine Bilirubin Urine Urobilinogen Ur Leukocyte Esterase Urine RBC Urine WBC Ur Squamous Epith Cells Urine Bacteria Ur Microscopic Review Urine Culture Comments Urine HCG, Qual Salicylates Urine Opiates Screen NEGATIVE Ur Oxycodone Screen NEGATIVE Urine Methadone Screen NEGATIVE Ur Propoxyphene Screen NEGATIVE Acetaminophen Ur Barbiturates Screen NEGATIVE Ur Tricyclics Screen NEGATIVE Ur Phencyclidine Scrn NEGATIVE Ur Amphetamine Screen NEGATIVE U Methamphetamines Scrn NEGATIVE U Benzodiazepines Scrn NEGATIVE Urine Cocaine Screen NEGATIVE U Cannabinoids Screen NEGATIVE Ethyl Alcohol - Rads (name of study) Ct head Radiology: Prelim report reviewed, Other PD MEDICAL DECISION MAKING - ED course Complexity details: considered differential (Sepsis, encephalopathy, UTI, drug use, paraneoplastic syndrome, encephalitis, Medistatic disease, psyhosis, NDMA encephalitis) ED course: On initial examination patient is somewhat disoriented and also appears to have some bizarre speech and thought process which is tangential but redirectable. Remainder of her neurologic exam is normal. Her vital signs in triage are notable for tachycardia to 110, however this resolved spontaneously with no intervention. She is afebrile. Labs were drawn and are unremarkable with no leukocytosis or leukopenia. Her TSH, CK, ammonia, are within normal limits. Ethanol level is negative, urine drug screen is negative, salicylates and acetampinophen levels also negative. CT scan of the head does show a 1.4 x 1.4 x 1.5 CSF density of unclear significance, but no obvious metastatic disease or swelling. Encephalitis is possible, infectious cause seems less likely given that she is afebrile at this time and has a normal white blood cell count. She also has no meningeal signs, full range of motion of her neck. Medication side effect is possible however she is only on bupropion. Chemotherapy side effect is also possible, however she has not had any effusion in recent days, wants this to be delayed onset. I called and spoke with Dr. Contreras of neurology and [facility] in [place], he agreed that she needs further work-up and should be transferred there. I spoke with Dr. Parada who accepted the patient for transfer. I will defer a lumbar puncture at this time, as I feel that she likely needs an MRI, and that if she needs any esoteric testing she would best served by having the CSF on site at the admitting hospital. We reviewed the results of her studies so far with patient and her , they agreed with the plan and will be transferred to [facility]. Departure - Departure Disposition: 02 Transfer Acute Care Hosp Clinical Impression: Confusion, Encephalopathy acute Condition: Stable Comments: You are being transferred to [facility] for further work-up and neurology consultation.
[2019-01-20 12:19] LABS: PLATELET ESTIMATE, MANUAL NORMAL (130-450,000) (NORMAL); PLATELET MORPHOLOGY NORMAL APPEARANCE (NORMAL)
--- NOTE | 2019-01-20 12:24 | CT Report ---
Reason: AMS Procedure Date: 01/20/2019 Accession Number: [id number] / [id number] Procedure: CT - HEAD WO CPT Code: FULL RESULT: EXAM: CT HEAD EXAM DATE: 01/20/2019 12:05 PM. CLINICAL HISTORY: AMS. COMPARISON: None. TECHNIQUE: Multiaxial CT images were obtained from the foramen magnum to the vertex. Reformats: Sagittal and coronal. IV contrast: None. In accordance with CT protocol optimization, one or more of the following dose reduction techniques were utilized for this exam: automated exposure control, adjustment of mA and/or KV based on patient size, or use of iterative reconstructive technique. FINDINGS: Parenchyma: Left occipital cortical 1.4 x 1.5 x 1.4 cm CSF density. No intraparenchymal hemorrhage. No evidence of midline shift, or CT findings of infarction. Harden-white differentiation is distinct. Extraaxial Spaces: Normal for age. No subdural or epidural collections identified. Ventricles: Normal in size and position. Sinuses and Orbits: Imaged paranasal sinuses, orbits, and mastoids show no significant abnormality. Bones: No evidence of fracture or calvarial defect. Other: None. IMPRESSION: 1. No acute bleed, no acute infarct. 2. Left occipital cortical 1.4 cm CSF density. Follow-up could be with nonemergent MRI [facility]
[2019-01-20 13:48] LABS: ACETAMINOPHEN < 10 ug/mL (10-30); CK- CREATINE KINASE 33 IU/L (22-269); SALICYLATE < 6.0 mg/dL
[2019-01-20 15:08] LABS: MUDS CUTOFF CONCENTRATIONS CUTOFF CONC BELOW:
[2019-01-20 15:28] LABS: AMPHETAMINE SCREEN,URINE NEGATIVE (NEGATIVE); BENZODIAZEPINES SCREEN, URINE NEGATIVE (NEGATIVE); COCAINE SCREEN URINE NEGATIVE (NEGATIVE); METHADONE SCREEN, URINE NEGATIVE (NEGATIVE); METHAMPHETAMINES SCREEN, URINE NEGATIVE (NEGATIVE); OPIATE SCREEN, URINE NEGATIVE (NEGATIVE); OXYCODONE SCREEN, URINE NEGATIVE (NEGATIVE); PROPOXYPHENE SCREEN, URINE NEGATIVE (NEGATIVE); TRICYCLIC ANTIDEPRESSANT,URINE NEGATIVE (NEGATIVE)
[2019-01-20] MEDS ORDERED: LORazepam 2 MG/ML VIAL IVP STA (18:46)
[2019-01-20] MEDS ORDERED: LORazepam 2 MG/ML VIAL ONE (18:53)
[2019-01-20 19:39] VITALS: BP 120/89
== END 2019-01-20 20:32 | disposition short-term general hospital (02) ==
LOC: ED 09:38
DX: G93.40 Encephalopathy, unspecified (principal); R90.89 Other abnormal findings on diagnostic imaging of central nervous system; Z08 Encounter for follow-up examination after completed treatment for malignant neoplasm; Z85.3 Personal history of malignant neoplasm of breast; Z90.12 Acquired absence of left breast and nipple
CPT/HCPCS: 36415; 70450; 80320; 80329; 81001; 81025; 82140; 82550; 83605; 83690; 84703; 96374; 99284; 99285; J2060; 80053; 80306; 80307; 81003; 84443; 85025; 87086

== ENCOUNTER 2019-02-07 15:54 | Inpatient (IN) | payer OTHER ==
--- NOTE | 2019-02-07 16:13 | ED Physician Documentation ---
History of Present Illness - Stated complaint Stated Complaint: FEVER - Chief complaint Chief Complaint: Fever - Additonal information Additional information: This is a very pleasant 28-year-old female who is known to me from a previous visit, who has a history of breast cancer with lymph node involvement currently on chemotherapy (follows with Dr. Moncada) who presents with a fever. Patient states she developed a fever yesterday it has been as high as 101.6 F. She has some sore throat she had a headache yesterday which is nearly resolved today, she otherwise feels well. No vomiting, no abdominal pain, no rash. No cough. She did have some chills yesterday, these have subsided. Her last infusion was last Wednesday. 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 : None, Other HEENT: None Psych: Depression, Anxiety Musculoskeletal: None Derm: None - Past Surgical History Past Surgical History: Yes /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, Other - Present Medications Home Medications: Ambulatory Orders Medication Instructions Recorded Confirmed RX: Bupropion HCl [Bupropion Xl] 150 mg PO DAILY 12/05/18 02/07/19 RX: Acetaminophen [Tylenol] 325 mg PO Q6HR PRN 01/10/19 02/07/19 OLANZapine [Zyprexa] 1 tab PO DAILY 01/24/19 02/07/19 - Allergies Allergies/Adverse Reactions: Allergies Allergy/AdvReac Type Severity Reaction Status Date / Time gabapentin AdvReac Headache Verified 01/31/19 09:01 - Social History Does the pt smoke?: No Smoking Status: Never smoker Does the pt drink ETOH?: No Does the pt have substance abuse?: No - Immunizations Immunizations are current?: Yes - POLST Patient has POLST: No PD ED PE NORMAL - Vitals Vital signs reviewed: Yes - General General: Alert and oriented X 3, No acute distress - HEENT HEENT: PERRL - Neck Neck: Supple, no meningeal sign - Cardiac Cardiac: RRR, No murmur - Respiratory Respiratory: Clear bilaterally - Abdomen Abdomen: Normal bowel sounds, Soft, Non tender, Non distended - Derm Derm: Warm and dry - Extremities Extremities: No deformity - Neuro Neuro: Alert and oriented X 3 - Psych Psych: Normal mood, Normal affect Results - Vitals Vitals: Vital Signs - 24 hr 02/07/19 02/07/19 02/07/19 15:57 16:02 18:42 Temperature 37.8 C H 37.3 C Heart Rate 125 H 125 H 111 H Respiratory 14 14 15 Rate Blood Pressure 118/70 118/70 125/68 O2 Saturation 100 100 100 Oxygen O2 Source Room air - Labs Labs: Laboratory Tests 02/07/19 02/07/19 02/07/19 17:40 17:40 17:40 WBC 0.6 L* RBC 3.07 L Hgb 8.9 L Hct 27.6 L MCV 89.9 MCH 29.0 MCHC 32.2 RDW 12.7 Plt Count 146 MPV 9.6 Neut # (Auto) Not Reportable Lymph # (Auto) Not Reportable [place] # (Auto) Not Reportable Eos # (Auto) Not Reportable Baso # (Auto) Not Reportable Absolute Nucleated RBC Not Reportable Total Counted 100 Band Neuts % (Manual) 0 Abnorm Lymph % (Manual) 0 Nucleated RBC % Not Reportable Neutrophils # (Manual) 0.0 L* Lymphocytes # (Manual) 0.5 L Monocytes # (Manual) 0.1 Eosinophils # (Manual) 0.0 Basophils # (Manual) 0.0 Differential Comment MANUAL DIFFERENTIAL Manual Slide Review Indicated WBC Morphology 1+ DOHLE BODIES Platelet Estimate NORMAL (130-450,000) Platelet Morphology NORMAL APPEARANCE RBC Morph Micro Appear NORMAL APPEARANCE Sodium 133 L Potassium 4.0 Chloride 100 L Carbon Dioxide 22 Anion Gap 11.0 BUN 8 Creatinine 0.6 Estimated GFR (MDRD) 120 Glucose 113 H Lactic Acid 0.7 Calcium 9.0 Total Bilirubin 0.7 AST 11 ALT 12 Alkaline Phosphatase 45 Total Protein 7.6 Albumin 4.4 Globulin 3.2 Albumin/Globulin Ratio 1.4 Lipase 19 L Serum HCG, Qual Urine Color Urine Clarity Urine pH Ur Specific [place] Urine Protein Urine Glucose (UA) Urine Ketones Urine Occult Blood Urine Nitrite Urine Bilirubin Urine Urobilinogen Ur Leukocyte Esterase Urine RBC Urine WBC Ur Squamous Epith Cells Urine Bacteria Urine Culture Comments 02/07/19 02/07/19 17:40 18:45 WBC RBC Hgb Hct MCV MCH MCHC RDW Plt Count MPV Neut # (Auto) Lymph # (Auto) [place] # (Auto) Eos # (Auto) Baso # (Auto) Absolute Nucleated RBC Total Counted Band Neuts % (Manual) Abnorm Lymph % (Manual) Nucleated RBC % Neutrophils # (Manual) Lymphocytes # (Manual) Monocytes # (Manual) Eosinophils # (Manual) Basophils # (Manual) Differential Comment Manual Slide Review WBC Morphology Platelet Estimate Platelet Morphology RBC Morph Micro Appear Sodium Potassium Chloride Carbon Dioxide Anion Gap BUN Creatinine Estimated GFR (MDRD) Glucose Lactic Acid Calcium Total Bilirubin AST ALT Alkaline Phosphatase Total Protein Albumin Globulin Albumin/Globulin Ratio Lipase Serum HCG, Qual NEGATIVE Urine Color YELLOW Urine Clarity CLEAR Urine pH 7.0 Ur Specific [place] <=1.005 Urine Protein NEGATIVE Urine Glucose (UA) NEGATIVE Urine Ketones NEGATIVE Urine Occult Blood TRACE-INTA Urine Nitrite NEGATIVE Urine Bilirubin NEGATIVE Urine Urobilinogen 0.2 (NORMAL) Ur Leukocyte Esterase NEGATIVE Urine RBC None Seen Urine WBC 0-3 Ur Squamous Epith Cells FEW Squamous Urine Bacteria Rare Urine Culture Comments NOT INDICATED - Rads (name of study) Chest Radiology: Other (No acute abnormality) PD MEDICAL DECISION MAKING - ED course Complexity details: considered differential (Neutropenic fever, bacteremia, pneumonia, dehydration, UTI) ED course: Pt presets with fever and tachycardia. She is currently on chemotherapy and has been neutropenic recently. Other than a sore throat, she feels well. Her exam does not reveal an obvious infectious source. IV started, blood cultures drawn, cefepime and vancomycin started. 30ml/kg bolus also started. She has a mild headache but no neck stiffness, and no new confusion, meningitis unlikely. She has 0 neutrophils on her labs. CXR is unremarkable. No signs of septic shock. Given her neutropenic fever she requires admission. I updated patient on her results, and she was admitted after discussion of her case with Dr. Pérez. Departure - Departure Disposition: 66 [facility] DC/Xfer Clinical Impression: Neutropenic fever Condition: Stable Discharge Date/Time: 02/07/19 19:40
[2019-02-07] MEDS ORDERED: LACTATED RINGERS IV STA (16:42)
[2019-02-07] MEDS ORDERED: CEFEPIME 2 GM in SODIUM CHLORIDE 0.9% MINIBAG 100 ML IV STA (17:02)
--- NOTE | 2019-02-07 17:09 | XRAY Report ---
Reason: Fever Procedure Date: 02/07/2019 Accession Number: [id number] / [id number] Procedure: XR - Chest 2 View X-Ray CPT Code: 33430 FULL RESULT: EXAM: CHEST RADIOGRAPHY EXAM DATE: 02/07/2019 05:01 PM. CLINICAL HISTORY: Fever. COMPARISON: CHEST 1 VIEW 01/16/2019 5:58 PM. TECHNIQUE: 2 views. FINDINGS: Lungs/Pleura: No focal opacities evident. No pleural effusion. No pneumothorax. Normal volumes. Mediastinum: Heart and mediastinal contours are unremarkable. Right-sided Port-A-Cath is well-positioned with its tip projected over the distal SVC. Other: Surgical clips in the soft tissues of left axilla. IMPRESSION: No acute cardiopulmonary process. [facility]
[2019-02-07 17:58] LABS: BASOPHILS % (AUTO) 1.8 %; EOSINOPHILS % (AUTO) 1.8 %; HGB - HEMOGLOBIN 8.9 g/dL (12.0-16.0); LYMPHOCYTES % (AUTO) 71.9 %; MEAN CORPUSCULAR HGB CONC 32.2 g/dL (32.0-36.0); MEAN CORPUSCULAR VOLUME 89.9 fL (81.0-99.0); MEAN PLATELET VOLUME 9.6 fL (7.9-10.8); MONOCYTES % (AUTO) 12.3 %; NEUTROPHILS % (AUTO) 12.2 %; PLT - PLATELET COUNT 146 10^3/uL (130-450); RED BLOOD COUNT 3.07 10^6/uL (4.20-5.40); RED CELL DISTRIBUTION WIDTH 12.7 % (12.0-15.0)
[2019-02-07 18:03] LABS: WHITE BLOOD COUNT 0.6 x10^3/uL (4.8-10.8)
[2019-02-07 18:05] LABS: ABNORMAL LYMPHS % (MANUAL) 0 %; BAND NEUTROPHILS % (MANUAL) 0 %
[2019-02-07 18:07] LABS: ALBUMIN 4.4 g/dL (3.2-5.5); ALBUMIN/GLOBULIN RATIO 1.4 (1.0-2.2); BILIRUBIN,TOTAL 0.7 mg/dL (0.2-1.0); CREATININE 0.6 mg/dL (0.4-1.0); TOTAL PROTEIN 7.6 g/dL (6.7-8.2)
[2019-02-07 18:18] LABS: HCG,QUALITATIVE BLOOD NEGATIVE
[2019-02-07 18:24] LABS: DIFFERENTIAL COMMENT MANUAL DIFFERENTIAL; LYMPHOCYTES # (MANUAL) 0.5 10^3/uL (1.5-3.5); LYMPHOCYTES % (MANUAL) 81 %; MONOCYTES # (MANUAL) 0.1 10^3/uL (0.0-1.0); PLATELET ESTIMATE, MANUAL NORMAL (130-450,000) (NORMAL); PLATELET MORPHOLOGY NORMAL APPEARANCE (NORMAL); RBC MORPHOLOGY (MULTIPLE) NORMAL APPEARANCE (NORMAL)
[2019-02-07 18:54] LABS: BILIRUBIN,URINE NEGATIVE (NEGATIVE); GLUCOSE, URINE (UA) NEGATIVE (NEGATIVE); KETONES,URINE (UA) NEGATIVE (NEGATIVE); LEUKOCYTE ESTERASE, URINE NEGATIVE (NEGATIVE); NITRITE,URINE NEGATIVE (NEGATIVE); OCCULT BLOOD,URINE TRACE-INTA (NEGATIVE); PROTEIN,URINE NEGATIVE (NEGATIVE); UROBILINOGEN,URINE 0.2 (NORMAL) E.U./dL (NORMAL)
[2019-02-07 18:55] LABS: CLARITY,URINE CLEAR (CLEAR)
[2019-02-07] MEDS ORDERED: SODIUM CHLORIDE FLUSH 0.9% 10 ML SYRINGE IVP PRN (19:06)
[2019-02-07 19:07] LABS: BACTERIA,URINE Rare /HPF (None Seen); RBC,URINE None Seen /HPF (0-5); SQUAMOUS EPITHELIAL CELL,UR FEW Squamous (<= Few)
--- NOTE | 2019-02-07 19:23 | HISTORY & PHYSICAL EXAMINATION ---
Chief Complaint - Chief Complaint Chief Complaint: fever, sore throat History of Present Illness - Admitted From Admitted From:: [facility] ED - History Obtained From Records Reviewed: yes History obtained from: patient - History of Present Illness HPI Comment/Other: Patient is a 28 y/o female who presented to the ED with complain of fever, wyatt vering, headache and sore throat. She started not feeling well yesterday but then developed a temp of 101F at home today. She came in because she was advised to come to the ED anytime she developed a fever. She was found to be tachycardic in the ED with a heart rate as high as 120. She is currently 110. She was found to have a neutrophil count of zero. She has breast cancer and is on chemotherapy. Last dose was Wednesday. 01/31/19. It is currently schedule for every 2 weeks. She denies chest pain or dyspnea. She denies coughing, nausea or vomiting. She reports being constipated and feeling bloated. She has very dry oral mucosa. She was started on vancomycin and cefepime in the ED and was presented for admission. 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 Her father is alive and well. She is one of 6 siblings in her family all of whom are healthy. She has 1 3 year old child who is healthy. Social History Notes: She has been to her Cornelio for 3 years. Together the have a 1year old son, Antoni. 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 - Substance History Use: Uses substance without health or social issues: NONE, Other - POLST Patient has POLST: No POLST Status: Full Code Meds/Allgy - Home Medications Home Medications: Ambulatory Orders Medication Instructions Recorded Confirmed Bupropion HCl [Bupropion Xl] 150 mg PO DAILY 12/05/18 02/07/19 Acetaminophen [Tylenol] 325 mg PO Q6HR PRN 01/10/19 02/07/19 OLANZapine [Zyprexa] 1 tab PO DAILY 01/24/19 02/07/19 - Allergies Allergies/Adverse Reactions: Allergies Allergy/AdvReac Type Severity Reaction Status Date / Time gabapentin AdvReac Headache Verified 01/31/19 09:01 Review of Systems - Constitutional Constitutional: reports: Fever, Chills. denies: Weakness - Eyes Eyes: denies: Amaurosis, Blurred vision, Vision loss, Dipolpia - Ears, Nose & Throat Ears, Nose & Throat: reports: Sore throat, Other (sore gums). denies: Nasal pain, Nasal discharge, Hoarseness - Respiratory Respiratory: denies: Cough, Sputum production, Wheezing, Hemoptysis, SOB at rest, SOB with exertion - Gastrointestinal Gastrointestinal: reports: Constipation. denies: Abdominal pain, Abdominal distention, Diarrhea, Nausea, Vomiting, Coffee grounds emesis, Reflux/heartburn - Genitourinary Genitourinary: denies: Dysuria, Frequency, Urgency, Hematuria - Musculoskeletal Musculoskeletal: denies: Muscle pain, Back pain, Muscle aches, Stiffness - Integumentary Integumentary: denies: Rash, Pruritis, Lesions, Dryness - Neurological Neurological: denies: General weakness, Focal weakness, Headache, Dizziness, Numbness, Memory problems - Psychiatric Psychiatric: reports: Depression, Anxiety - Endocrine Endocrine: denies: Polyuria, Polydypsia - Hematologic/Lymphatic Hematologic/Lymphatic: denies: Anemia, Bruising, Petechiae Prior Level of Functionality: She is independent of activities of daily living. 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 Was in the [employer] prior Exam - Vital Signs Vital Signs: Vital Signs x48h Temp Pulse Resp BP Pulse Ox 02/07/19 18:42 37.3 C 111 H 15 125/68 100 02/07/19 16:02 125 H 14 118/70 100 02/07/19 15:57 37.8 C H 125 H 14 118/70 100 - Physical Exam General Appearance: positive: No acute distress, Alert Eyes Bilateral: positive: Normal inspection, PERRL, EOMI ENT: positive: Pharyngeal erythema, Dry mucous membranes Neck: positive: Nml inspection, No JVD, Trachea midline Respiratory: positive: Chest non-tender, No respiratory distress, Breath sounds nml. negative: Wheezes, Rales, Rhonchi Cardiovascular: positive: No murmur, Tachycardia Abdomen: positive: Non-tender, No organomegaly, Nml bowel sounds, No distention. negative: Guarding, Rebound Skin: positive: Color nml, No rash, Warm, Dry Extremities: positive: Non-tender, Full ROM, Nml appearance, No pedal edema Neurologic/Psychiatric: positive: Oriented x3, CN's nml (2-12), Motor nml, Sensation nml, Mood/affect nml Sepsis Event Note (H) - Evaluation Current Stage of Sepsis: Sepsis - Sepsis Criteria Sepsis Criteria: Recorded Temperature greater than 38.3C or Less than 36C, Recorded Heart Rate greater than 90 bpm, WBC count greater than 12,000 or less than 4000 Conclusion/Plan - Problem List (1) Neutropenic fever Conclusion/Plan: Patient given vanc and cefepime in the ED Will continue cefepime 2g IV q8h Tylenol for fever Throat and Blood cultures pending. Neutropenic precautions. IV hydration with normal saline She reports receiving neulasta last week. (2) Breast cancer, left breast Conclusion/Plan: Patient receives chemotherapy at the [facility] Last dose was on Wednesday Patient used to see Dr Moncada (oncologist) but is now scheduled to start seeing Dr Xiang. Dunlap for nausea Qualifiers: Breast location: unspecified site of breast Estrogen receptor status: unspecified Patient sex: female Qualified Code(s): C50.912 - Malignant neoplasm of unspecified site of left female breast (3) Depression Conclusion/Plan: Not on any medication currently - Lab Results Fish Bones: 02/08/19 05:15 02/08/19 05:15 Core Measures - Anticipated LOS I expect patient to be DC'd or transferred within 96 hours.: Yes - DVT/VTE - Prophylaxis VTE/DVT Device ordered at admit?: Yes
[2019-02-07] MEDS: VANCOMYCIN INJ 0.75 GM in SODIUM CHLORIDE 0.9% 250 ML IV SCH (19:25)
[2019-02-07] MEDS: ACETAMINOPHEN 325 MG TABLET PO PRN (20:24)
[2019-02-07] MEDS ORDERED: OLANZapine ODT 5 MG TABLET TL SCH (21:06)
[2019-02-07] MEDS: SODIUM CHLORIDE 0.9% 1,000 ML IV SCH (21:26)
[2019-02-08] MEDS: ACETAMINOPHEN 325 MG TABLET PO PRN ×4 (01:02→20:23)
[2019-02-08] MEDS: BENZOCAINE/MENTHOL LOZENGE MM PRN ×4 (01:03→19:39)
[2019-02-08] MEDS: CEFEPIME 2 GM in SODIUM CHLORIDE 0.9% MINIBAG 100 ML IV SCH ×3 (01:04→17:55)
[2019-02-08] MEDS: SODIUM CHLORIDE FLUSH 0.9% 10 ML SYRINGE IVP SCH ×3 (01:14→18:11)
[2019-02-08] MEDS: VANCOMYCIN INJ 0.75 GM in SODIUM CHLORIDE 0.9% 250 ML IV SCH (05:39)
[2019-02-08 05:41] LABS: BASOPHILS % (AUTO) 2.6 %; EOSINOPHILS % (AUTO) 2.6 %; HGB - HEMOGLOBIN 7.6 g/dL (12.0-16.0); LYMPHOCYTES % (AUTO) 56.6 %; MEAN CORPUSCULAR HEMOGLOBIN 29.3 pg (27.0-31.0); MEAN CORPUSCULAR HGB CONC 31.9 g/dL (32.0-36.0); MEAN CORPUSCULAR VOLUME 91.9 fL (81.0-99.0); MONOCYTES % (AUTO) 11.8 %; NEUTROPHILS % (AUTO) 25.1 %; PLT - PLATELET COUNT 130 10^3/uL (130-450); RED BLOOD COUNT 2.59 10^6/uL (4.20-5.40); RED CELL DISTRIBUTION WIDTH 12.8 % (12.0-15.0)
[2019-02-08 05:53] LABS: CALCIUM 8.2 mg/dL (8.5-10.3); CREATININE 0.6 mg/dL (0.4-1.0)
[2019-02-08 06:03] LABS: WHITE BLOOD COUNT 0.8 x10^3/uL (4.8-10.8)
[2019-02-08 06:04] LABS: ABNORMAL LYMPHS % (MANUAL) 0 %; BAND NEUTROPHILS % (MANUAL) 0 %
[2019-02-08 06:46] LABS: BASOPHILS % (MANUAL) 3 %; LYMPHOCYTES # (MANUAL) 0.6 10^3/uL (1.5-3.5); LYMPHOCYTES % (MANUAL) 73 %; RBC MORPHOLOGY (MULTIPLE) NORMAL APPEARANCE (NORMAL)
[2019-02-08 06:47] LABS: PLATELET MORPHOLOGY NORMAL APPEARANCE (NORMAL)
[2019-02-08 06:48] LABS: DIFFERENTIAL COMMENT MANUAL DIFFERENTIAL; PLATELET ESTIMATE, MANUAL NORMAL (130-450,000) (NORMAL)
--- NOTE | 2019-02-08 07:53 | PROVIDER PROGRESS NOTE ---
Assessment/Plan - Problem List (1) Neutropenic fever Assessment/Plan: Unclear source but maybe secondary to mucositis Neutrophil count up to 200 this morning T-max of 37.6 this morning Chest x-ray negative Urinalysis negative Group a strep throat culture pending Blood cultures pending Continue IV cefepime Await culture results, monitor fever curve and neutrophil count (2) Breast cancer, left breast Qualifiers: Breast location: unspecified site of breast Estrogen receptor status: unspecified Patient sex: female Qualified Code(s): C50.912 - Malignant neoplasm of unspecified site of left female breast Assessment/Plan: Patient last received chemotherapy on Wednesday She received Neulasta at that time as well Continue Zofran for nausea Patient will follow-up in my clinic once she gets out of the hospital. (3) Hyponatremia Assessment/Plan: Likely hypovolemic hyponatremia Resolved with IV fluids (4) Anemia Qualifiers: Anemia type: other cause Other causes of anemia: other cause, not classified Qualified Code(s): D64.89 - Other specified anemias Assessment/Plan: Likely secondary to chemotherapy Hemoglobin stable Monitor hemoglobin Transfuse if hemoglobin less than 7 (5) Depression Qualifiers: Depression Type: unspecified Qualified Code(s): F32.9 - Major depressive disorder, single episode, unspecified Assessment/Plan: Continue Zyprexa Patient had an acute psychotic break after starting steroids and required hospitalization a few weeks ago. Currently stable (6) Mucositis Assessment/Plan: Likely secondary to chemotherapy Start Magic mouthwash - Current Meds Current Meds: Current Medications Generic Name Dose Route Start Last Admin Trade Name Freq PRN Reason Stop Dose Admin Acetaminophen 650 mg 02/07/19 19:06 02/08/19 01:02 Tylenol PO 650 mg Q4HR PRN Administration Pain 1 to 4 Vancomycin HCl 0.75 gm/ Sodium 250 mls @ 167 mls/hr 02/07/19 18:00 02/08/19 05:39 Chloride IV 167 mls/hr Q12H SARA Administration Sodium Chloride 1,000 mls @ 100 mls/hr 02/07/19 20:00 02/08/19 06:25 Normal Saline 0.9% IV 0 mls/hr .Q10H SARA Infusion Cefepime HCl 2 gm/ Sodium 100 mls @ 200 mls/hr 02/08/19 01:30 02/08/19 01:34 Chloride IV Infused Q8H SARA Infusion Sodium Chloride 10 ml 02/08/19 01:00 02/08/19 01:14 Normal Saline Flush 0.9% IVP Not Given 0100,0900,1700 SARA Throat Lozenges 1 lozenge 02/07/19 20:27 02/08/19 01:03 Cepacol MM 1 lozenge Q2HR PRN Administration Mouth Sore Pain - Lab Result Lab results reviewed: Yes Fish Bone Diagrams: 02/08/19 05:15 02/08/19 05:15 Other Lab Results: Laboratory Results - last 24 hr 02/07/19 02/07/19 02/07/19 17:40 17:40 17:40 WBC 0.6 L* RBC 3.07 L Hgb 8.9 L Hct 27.6 L MCV 89.9 MCH 29.0 MCHC 32.2 RDW 12.7 Plt Count 146 MPV 9.6 Neut # (Auto) Not Reportable Lymph # (Auto) Not Reportable Vermillion # (Auto) Not Reportable Eos # (Auto) Not Reportable Baso # (Auto) Not Reportable Absolute Nucleated RBC Not Reportable Total Counted 100 Band Neuts % (Manual) 0 Abnorm Lymph % (Manual) 0 Nucleated RBC % Not Reportable Neutrophils # (Manual) 0.0 L* Lymphocytes # (Manual) 0.5 L Monocytes # (Manual) 0.1 Eosinophils # (Manual) 0.0 Basophils # (Manual) 0.0 Differential Comment MANUAL DIFFERENTIAL Manual Slide Review Indicated WBC Morphology 1+ DOHLE BODIES Platelet Estimate NORMAL (130-450,000) Platelet Morphology NORMAL APPEARANCE RBC Morph Micro Appear NORMAL APPEARANCE Sodium 133 L Potassium 4.0 Chloride 100 L Carbon Dioxide 22 Anion Gap 11.0 BUN 8 Creatinine 0.6 Estimated GFR (MDRD) 120 Glucose 113 H Lactic Acid 0.7 Calcium 9.0 Total Bilirubin 0.7 AST 11 ALT 12 Alkaline Phosphatase 45 Total Protein 7.6 Albumin 4.4 Globulin 3.2 Albumin/Globulin Ratio 1.4 Lipase 19 L Serum HCG, Qual Urine Color Urine Clarity Urine pH Ur Specific Quentin Urine Protein Urine Glucose (UA) Urine Ketones Urine Occult Blood Urine Nitrite Urine Bilirubin Urine Urobilinogen Ur Leukocyte Esterase Urine RBC Urine WBC Ur Squamous Epith Cells Urine Bacteria Urine Culture Comments 02/07/19 02/07/19 02/08/19 17:40 18:45 05:15 WBC 0.8 L* RBC 2.59 L Hgb 7.6 L Hct 23.8 L MCV 91.9 MCH 29.3 MCHC 31.9 L RDW 12.8 Plt Count 130 MPV 10.0 Neut # (Auto) Not Reportable Lymph # (Auto) Not Reportable Vermillion # (Auto) Not Reportable Eos # (Auto) Not Reportable Baso # (Auto) Not Reportable Absolute Nucleated RBC Not Reportable Total Counted 100 Band Neuts % (Manual) 0 Abnorm Lymph % (Manual) 0 Nucleated RBC % Not Reportable Neutrophils # (Manual) 0.2 L* Lymphocytes # (Manual) 0.6 L Monocytes # (Manual) 0.0 Eosinophils # (Manual) 0.0 Basophils # (Manual) 0.0 Differential Comment MANUAL DIFFERENTIAL Manual Slide Review WBC Morphology NORMAL APPEARANCE Platelet Estimate NORMAL (130-450,000) Platelet Morphology NORMAL APPEARANCE RBC Morph Micro Appear NORMAL APPEARANCE Sodium Potassium Chloride Carbon Dioxide Anion Gap BUN Creatinine Estimated GFR (MDRD) Glucose Lactic Acid Calcium Total Bilirubin AST ALT Alkaline Phosphatase Total Protein Albumin Globulin Albumin/Globulin Ratio Lipase Serum HCG, Qual NEGATIVE Urine Color YELLOW Urine Clarity CLEAR Urine pH 7.0 Ur Specific Quentin <=1.005 Urine Protein NEGATIVE Urine Glucose (UA) NEGATIVE Urine Ketones NEGATIVE Urine Occult Blood TRACE-INTA Urine Nitrite NEGATIVE Urine Bilirubin NEGATIVE Urine Urobilinogen 0.2 (NORMAL) Ur Leukocyte Esterase NEGATIVE Urine RBC None Seen Urine WBC 0-3 Ur Squamous Epith Cells FEW Squamous Urine Bacteria Rare Urine Culture Comments NOT INDICATED 02/08/19 05:15 WBC RBC Hgb Hct MCV MCH MCHC RDW Plt Count MPV Neut # (Auto) Lymph # (Auto) Vermillion # (Auto) Eos # (Auto) Baso # (Auto) Absolute Nucleated RBC Total Counted Band Neuts % (Manual) Abnorm Lymph % (Manual) Nucleated RBC % Neutrophils # (Manual) Lymphocytes # (Manual) Monocytes # (Manual) Eosinophils # (Manual) Basophils # (Manual) Differential Comment Manual Slide Review WBC Morphology Platelet Estimate Platelet Morphology RBC Morph Micro Appear Sodium 136 Potassium 3.7 Chloride 107 Carbon Dioxide 21 Anion Gap 8.0 BUN 6 Creatinine 0.6 Estimated GFR (MDRD) 120 Glucose 110 H Lactic Acid Calcium 8.2 L Total Bilirubin AST ALT Alkaline Phosphatase Total Protein Albumin Globulin Albumin/Globulin Ratio Lipase Serum HCG, Qual Urine Color Urine Clarity Urine pH Ur Specific Quentin Urine Protein Urine Glucose (UA) Urine Ketones Urine Occult Blood Urine Nitrite Urine Bilirubin Urine Urobilinogen Ur Leukocyte Esterase Urine RBC Urine WBC Ur Squamous Epith Cells Urine Bacteria Urine Culture Comments - Diagnostic Imaging Results Diagnostic Imaging Results: Final report reviewed - Additional Planning Condition/Complexity: Guarded Plan Discussed with:: Patient, Family Time Spent: 15-30 minutes Subjective - Subjective Patient Reports: Feeling Better, Resting Comfortably, Fever, Other (Feels fatigued but denies any chest pain, cough, nausea or vomiting.) Nursing Reports: No Complaints Objective Vital Signs: Vital Signs - 24 hr 02/07/19 02/07/19 02/07/19 15:57 16:02 18:42 Temperature 37.8 C H 37.3 C Heart Rate 125 H 125 H 111 H Heart Rate [ Brachial] Respiratory 14 14 15 Rate Blood Pressure 118/70 118/70 125/68 Blood Pressure [Right Brachial artery] O2 Saturation 100 100 100 02/07/19 02/07/19 02/07/19 19:37 19:46 23:46 Temperature 37.7 C H 37.7 C H 36.9 C Heart Rate 108 H Heart Rate [ 119 H 100 Brachial] Respiratory 18 18 16 Rate Blood Pressure 110/72 Blood Pressure 119/73 112/71 [Right Brachial artery] O2 Saturation 99 100 100 02/08/19 05:00 Temperature 37.0 C Heart Rate Heart Rate [ 96 Brachial] Respiratory 16 Rate Blood Pressure Blood Pressure 96/57 L [Right Brachial artery] O2 Saturation 100 Oxygen O2 Source Room air I&O (Last 24 Hrs): Intake and Output Totals x24h 02/06/19 02/07/19 02/08/19 23:59 23:59 23:59 Intake Total 2215 998.333 Balance 2215 998.333 General: Alert, Oriented x3, Cooperative, No acute distress HEENT: Atraumatic, PERRLA, EOMI, Other (Alopecia, dry mucus membranes with mucositis) Neck: Supple, No JVD, No thyromegaly, +2 carotid pulse wo bruit, No LAD Lymphatic: no adenopathy Neuro: Alert, Non Focal, CN 2-12 Grossly Intact, Oriented Times 3 Cardiovascular: Regular rate, Normal S1, Normal S2, No murmurs Respiratory: Chest non-tender, No respiratory distress, Breath sounds nml Abdomen: Normal bowel sounds, Soft, No tenderness, No hepatospenomegaly, No masses Genitourinary: Normal External, No Bleeding, No Discharge, No Tenderness, No Adnexal Mass Rectal: Non-Tender Extremities: No clubbing, No cyanosis, No edema, Normal pulses, No tenderness/swelling Skin: No rashes, No breakdown, No significant lesion - Results Results: Laboratory Results WBC 0.8 x10^3/uL (4.8-10.8) L* 02/08/19 05:15 RBC 2.59 10^6/uL (4.20-5.40) L 02/08/19 05:15 Hgb 7.6 g/dL (12.0-16.0) L 02/08/19 05:15 Hct 23.8 % (37.0-47.0) L 02/08/19 05:15 MCV 91.9 fL (81.0-99.0) 02/08/19 05:15 MCH 29.3 pg (27.0-31.0) 02/08/19 05:15 MCHC 31.9 g/dL (32.0-36.0) L 02/08/19 05:15 RDW 12.8 % (12.0-15.0) 02/08/19 05:15 Plt Count 130 10^3/uL (130-450) 02/08/19 05:15 MPV 10.0 fL (7.9-10.8) 02/08/19 05:15 Neut # (Auto) Not Reportable 02/08/19 05:15 Lymph # (Auto) Not Reportable 02/08/19 05:15 Vermillion # (Auto) Not Reportable 02/08/19 05:15 Eos # (Auto) Not Reportable 02/08/19 05:15 Baso # (Auto) Not Reportable 02/08/19 05:15 Absolute Nucleated RBC Not Reportable 02/08/19 05:15 Total Counted 100 02/08/19 05:15 Band Neuts % (Manual) 0 % (0-10) 02/08/19 05:15 Abnorm Lymph % (Manual) 0 % 02/08/19 05:15 Nucleated RBC % Not Reportable 02/08/19 05:15 Neutrophils # (Manual) 0.2 10^3/uL (1.5-6.6) L* 02/08/19 05:15 Lymphocytes # (Manual) 0.6 10^3/uL (1.5-3.5) L 02/08/19 05:15 Monocytes # (Manual) 0.0 10^3/uL (0.0-1.0) 02/08/19 05:15 Eosinophils # (Manual) 0.0 10^3/uL (0-0.7) 02/08/19 05:15 Basophils # (Manual) 0.0 10^3/uL (0-0.1) 02/08/19 05:15 Differential Comment MANUAL DIFFERENTIAL 02/08/19 05:15 Manual Slide Review Indicated 02/07/19 17:40 WBC Morphology NORMAL APPEARANCE (NORMAL) 02/08/19 05:15 Platelet Estimate NORMAL (130-450,000) (NORMAL) 02/08/19 05:15 Platelet Morphology NORMAL APPEARANCE (NORMAL) 02/08/19 05:15 RBC Morph Micro Appear NORMAL APPEARANCE (NORMAL) 02/08/19 05:15 Sodium 136 mmol/L (135-145) 02/08/19 05:15 Potassium 3.7 mmol/L (3.5-5.0) 02/08/19 05:15 Chloride 107 mmol/L (101-111) 02/08/19 05:15 Carbon Dioxide 21 mmol/L (21-32) 02/08/19 05:15 Anion Gap 8.0 (6-13) 02/08/19 05:15 BUN 6 mg/dL (6-20) 02/08/19 05:15 Creatinine 0.6 mg/dL (0.4-1.0) 02/08/19 05:15 Estimated GFR (MDRD) 120 (>89) 02/08/19 05:15 Glucose 110 mg/dL (70-100) H 02/08/19 05:15 Lactic Acid 0.7 mmol/L (0.5-2.2) 02/07/19 17:40 Calcium 8.2 mg/dL (8.5-10.3) L 02/08/19 05:15 Total Bilirubin 0.7 mg/dL (0.2-1.0) 02/07/19 17:40 AST 11 IU/L (10-42) 02/07/19 17:40 ALT 12 IU/L (10-60) 02/07/19 17:40 Alkaline Phosphatase 45 IU/L (42-121) 02/07/19 17:40 Total Protein 7.6 g/dL (6.7-8.2) 02/07/19 17:40 Albumin 4.4 g/dL (3.2-5.5) 02/07/19 17:40 Globulin 3.2 g/dL (2.1-4.2) 02/07/19 17:40 Albumin/Globulin Ratio 1.4 (1.0-2.2) 02/07/19 17:40 Lipase 19 U/L (22-51) L 02/07/19 17:40 Serum HCG, Qual NEGATIVE 02/07/19 17:40 Urine Color YELLOW 02/07/19 18:45 Urine Clarity CLEAR (CLEAR) 02/07/19 18:45 Urine pH 7.0 PH (5.0-7.5) 02/07/19 18:45 Ur Specific Quentin <=1.005 (1.002-1.030) 02/07/19 18:45 Urine Protein NEGATIVE mg/dL (NEGATIVE) 02/07/19 18:45 Urine Glucose (UA) NEGATIVE mg/dL (NEGATIVE) 02/07/19 18:45 Urine Ketones NEGATIVE mg/dL (NEGATIVE) 02/07/19 18:45 Urine Occult Blood TRACE-INTA (NEGATIVE) 02/07/19 18:45 Urine Nitrite NEGATIVE (NEGATIVE) 02/07/19 18:45 Urine Bilirubin NEGATIVE (NEGATIVE) 02/07/19 18:45 Urine Urobilinogen 0.2 (NORMAL) E.U./dL (NORMAL) 02/07/19 18:45 Ur Leukocyte Esterase NEGATIVE (NEGATIVE) 02/07/19 18:45 Urine RBC None Seen /HPF (0-5) 02/07/19 18:45 Urine WBC 0-3 /HPF (0-5) 02/07/19 18:45 Ur Squamous Epith Cells FEW Squamous (<= Few) 02/07/19 18:45 Urine Bacteria Rare /HPF (None Seen) 02/07/19 18:45 Urine Culture Comments NOT INDICATED 02/07/19 18:45 - Procedures Procedures: Procedures INSERT VAD RESERVOIR IN CHEST SUBCU/FASCIA, PERC (12/27/18) INSERTION OF INFUSION DEV INTO SUP VENA CAVA, PERC APPROACH (12/27/18) RESECTION OF LEFT AXILLARY LYMPHATIC, OPEN APPROACH (12/06/18) RESECTION OF LEFT BREAST, OPEN APPROACH (12/06/18) ABX Reporting Has patient been on IV antibiotics over the past 48 hours?: No Current Medications - Current Medications Current Medications: Active Medications Generic Name Dose Route Start Last Admin Trade Name Freq PRN Reason Stop Dose Admin Acetaminophen 650 mg 02/07/19 19:06 02/08/19 01:02 Tylenol PO 650 mg Q4HR PRN Administration Pain 1 to 4 Vancomycin HCl 0.75 gm/ Sodium 250 mls @ 167 mls/hr 02/07/19 18:00 02/08/19 05:39 Chloride IV 167 mls/hr Q12H SARA Administration Sodium Chloride 1,000 mls @ 100 mls/hr 02/07/19 20:00 02/08/19 06:25 Normal Saline 0.9% IV 0 mls/hr .Q10H SARA Infusion Cefepime HCl 2 gm/ Sodium 100 mls @ 200 mls/hr 02/08/19 01:30 02/08/19 01:34 Chloride IV Infused Q8H SARA Infusion Olanzapine 10 mg 02/08/19 21:00 Zyprexa Odt TL QPM SARA Polyethylene Glycol 17 gm 02/08/19 09:00 Miralax PO DAILY SARA Sodium Chloride 10 ml 02/07/19 19:06 Normal Saline Flush 0.9% IVP PRN PRN NEEDED PER PROVIDER ORDERS Sodium Chloride 10 ml 02/08/19 01:00 02/08/19 01:14 Normal Saline Flush 0.9% IVP Not Given 0100,0900,1700 SARA Throat Lozenges 1 lozenge 02/07/19 20:27 02/08/19 01:03 Cepacol MM 1 lozenge Q2HR PRN Administration Mouth Sore Pain Bupropion HCl [Bupropion Xl] 150 mg PO DAILY 12/05/18 Acetaminophen [Tylenol] 325 mg PO Q6HR PRN 01/10/19 OLANZapine [Zyprexa] 1 tab PO DAILY 01/24/19
[2019-02-08] MEDS ORDERED: MAGIC MOUTHWASH 120 ML BOTTLE PO PRN (08:29)
[2019-02-08] MEDS: SODIUM CHLORIDE 0.9% 1,000 ML IV SCH ×2 (09:21→20:23)
[2019-02-08] MEDS: POLYETHYLENE GLYCOL 3350 17 GM PACKET PO SCH (09:24)
[2019-02-08] MEDS ORDERED: OLANZapine ODT 5 MG TABLET TL SCH ×2 (21:00)
[2019-02-09] MEDS: SODIUM CHLORIDE FLUSH 0.9% 10 ML SYRINGE IVP SCH ×2 (00:07→09:29)
[2019-02-09] MEDS: BENZOCAINE/MENTHOL LOZENGE MM PRN ×2 (00:37→05:30)
[2019-02-09] MEDS: CEFEPIME 2 GM in SODIUM CHLORIDE 0.9% MINIBAG 100 ML IV SCH ×2 (02:06→09:28)
[2019-02-09 05:23] LABS: BASOPHILS % (AUTO) 2.3 %; EOSINOPHILS % (AUTO) 2.3 %; HGB - HEMOGLOBIN 7.6 g/dL (12.0-16.0); LYMPHOCYTES % (AUTO) 54.9 %; MEAN CORPUSCULAR HEMOGLOBIN 30.5 pg (27.0-31.0); MEAN CORPUSCULAR HGB CONC 32.9 g/dL (32.0-36.0); MEAN CORPUSCULAR VOLUME 92.8 fL (81.0-99.0); MEAN PLATELET VOLUME 10.4 fL (7.9-10.8); MONOCYTES % (AUTO) 12.8 %; NEUTROPHILS % (AUTO) 26.2 %; PLT - PLATELET COUNT 98 10^3/uL (130-450); RED BLOOD COUNT 2.49 10^6/uL (4.20-5.40); RED CELL DISTRIBUTION WIDTH 12.7 % (12.0-15.0)
[2019-02-09 05:39] LABS: WHITE BLOOD COUNT 1.3 x10^3/uL (4.8-10.8)
[2019-02-09 05:40] LABS: ABNORMAL LYMPHS % (MANUAL) 0 %; BAND NEUTROPHILS % (MANUAL) 0 %
[2019-02-09 05:42] LABS: BUN - BLOOD UREA NITROGEN < 5 mg/dL (6-20); CARBON DIOXIDE - CO2 21 mmol/L (21-32); CHLORIDE 111 mmol/L (101-111); CREATININE 0.4 mg/dL (0.4-1.0); GFR - MDRD 191 (>89); GLUCOSE 99 mg/dL (70-100); SODIUM 139 mmol/L (135-145)
[2019-02-09 05:56] LABS: EOSINOPHILS # (MANUAL) 0.1 10^3/uL (0-0.7); LYMPHOCYTES # (MANUAL) 0.9 10^3/uL (1.5-3.5); LYMPHOCYTES % (MANUAL) 71 %; MONOCYTES # (MANUAL) 0.1 10^3/uL (0.0-1.0); RBC MORPHOLOGY (MULTIPLE) NORMAL APPEARANCE (NORMAL)
[2019-02-09 05:57] LABS: DIFFERENTIAL COMMENT MANUAL DIFFERENTIAL; PLATELET ESTIMATE, MANUAL DECREASED (<130,000) (NORMAL)
[2019-02-09] MEDS: SODIUM CHLORIDE 0.9% 1,000 ML IV SCH (06:39)
[2019-02-09 08:21] VITALS: BP 106/80
--- NOTE | 2019-02-09 08:33 | Discharge Plan ---
Discharge Plan Problem Reviewed?: Yes Disposition: Home, Self Care Condition: Fair Prescriptions: Magic Mouthwash 30 ml PO Q6HR PRN #240 ml PRN Reason: Mucositis Levofloxacin [Levaquin] 750 mg PO DAILY #5 tablet Diet: Regular Activity Restrictions: Rest at home and try to limit visitors Shower Restrictions: No Driving Restrictions: No Weight Bearing: Full Weight Health Concerns: Please return to the ER if you have any more fevers. Stay away from anyone who is sick. Wear a mask at all times to protect yourself. Follow up with oncology and get your labs rechecked on Wednesday. Continue antibiotics prescribed to you for 5 more days then follow up with your Oncologist as he may decide you need more antibiotics. No Smoking: If you smoke, Please STOP! Call for help. Follow-up with: Flory Bentley DO [Primary Care Provider] -
--- NOTE | 2019-02-09 08:50 | DISCHARGE SUMMARY ---
Discharge Summary Admit Date: 02/07/19 Discharge Date: 02/09/19 Discharging Provider: Ashwin Simms MD Primary Care Provider: Flory Bentley Code Status: Attempt Resuscitation Condition at Discharge: Fair Discharge Disposition: 01 Home, Self Care - DIAGNOSES Admission Diagnoses: 1. Neutropenic fever 2. Breast cancer, left breast 3. Depression Discharge Diagnoses with Status of Each Condition: 1. Neutropenic fever: Stable 2. Breast cancer, left breast: Guarded 3. Mucositis: Stable 4. Hyponatremia: Resolved 5. Anemia: Stable 6. Depression: Stable 7. Severe protein calorie malnutrition: Guarded - HPI History of Present Illness: Patient is a 28 y/o female who presented to the ED with complain of fever, shivering, headache and sore throat. She started not feeling well yesterday but then developed a temp of 101F at home today. She came in because she was advised to come to the ED anytime she developed a fever. She was found to be tachycardic in the ED with a heart rate as high as 120. She is currently 110. She was found to have a neutrophil count of zero. She has breast cancer and is on chemotherapy. Last dose was Wednesday. 01/31/19. It is currently schedule for every 2 weeks. She denies chest pain or dyspnea. She denies coughing, nausea or vomiting. She reports being constipated and feeling bloated. She has very dry oral mucosa. She was started on vancomycin and cefepime in the ED and was presented for admission. - HOSPITAL COURSE Hospital Course: Patient was admitted to the [facility] for neutropenic fever. She was started on IV cefepime 2 g every 8 hours. Blood cultures were drawn which were negative x1 day. Over the patient's 48-hour course in the hospital she had a T-max of 37.8 on 02/07/2019 at 1557. For the remainder of the hospitalization the patient's T-max was 37.7 on 02/07/2019 at 1946. The patient had no further fevers. The patient's neutrophil count on presentation was 0 and increased to 2 00 and then 300 on the following days. The patient was given Neulasta about 10 days ago. The patient's hemoglobin remained stable throughout the hospitalization at 7.6. The patient's platelet count did drop slightly to 98 on the day of discharge. The patient's pancytopenia likely is secondary to her chemotherapy which she last received last Wednesday. The patient felt well and had no complaints of cough, abdominal pain, nausea, vomiting, diarrhea or any urinary symptoms. Given that the patient remained stable for 48 hours and never had any temperatures 38.0 C or greater during the course of the hospitalization and her neutrophil count was slowly improving although not above 500 yet we felt she was stable enough to discharge home. The patient's antibiotics were switched to oral Levaquin which she will continue for 5 more days. On 02/13/2019 she will see her oncologist Dr. Tenorio and will have her labs redrawn at that time. The patient was told to return to the emergency department if she has any further fevers. The source of the patient's fever was likely either viral infection or mucositis. The patient did have mild mucositis which was treated with Magic mouthwash. Patient was given a prescription for Magic mouthwash at discharge. The patient was stable at discharge. - ALLERGIES Allergies/Adverse Reactions: Allergies Allergy/AdvReac Type Severity Reaction Status Date / Time gabapentin AdvReac Headache Verified 01/31/19 09:01 - MEDICATIONS Home Medications: Ambulatory Orders Medication Instructions Recorded Confirmed Bupropion HCl [Bupropion Xl] 150 mg PO DAILY 12/05/18 02/07/19 Acetaminophen [Tylenol] 325 mg PO Q6HR PRN 01/10/19 02/07/19 OLANZapine [Zyprexa] 1 tab PO DAILY 01/24/19 02/07/19 LORazepam [Lorazepam] 0.5 - 1 mg PO Q6H PRN 02/08/19 02/08/19 Ondansetron HCl [Zofran] 4 mg PO Q4H PRN 02/08/19 02/08/19 Prochlorperazine Maleate 10 mg PO Q6H PRN 02/08/19 02/08/19 [Compazine] Levofloxacin [Levaquin] 750 mg PO DAILY #5 tablet 02/09/19 Magic Mouthwash 30 ml PO Q6HR PRN #240 ml 02/09/19 - PHYSICAL EXAM AT DISCHARGE General Appearance: positive: No acute distress, Alert Eyes Bilateral: positive: Normal inspection, PERRL, EOMI, No lid inflammation ENT: positive: ENT inspection nml, Pharynx nml, No signs of dehydration, Oral lesions (Mucositis with small lesion at the back of the throat). negative: Purulent nasal drainage, Pharyngeal erythema Neck: positive: Nml inspection, Thyroid nml, No JVD, Trachea midline. negative: Thyromegaly, Lymphadenopathy (R), Lymphadenopathy (L), Stiff neck Respiratory: positive: Chest non-tender, No respiratory distress, Breath sounds nml. negative: Wheezes, Rales, Rhonchi Cardiovascular: positive: Regular rate & rhythm, No murmur, No gallop Peripheral Pulses: positive: 2+ Abdomen: positive: Non-tender, No organomegaly, Nml bowel sounds, No distention. negative: Guarding, Rebound, Hepatomegaly, Splenomegaly Back: positive: Nml inspection. negative: CVA tenderness (R), CVA tenderness (L) Skin: positive: Color nml, No rash, Warm, Dry. negative: Cyanosis, Diaphoresis, Pallor, Skin rash Extremities: positive: Non-tender, Full ROM, Nml appearance, No pedal edema Neurologic/Psychiatric: positive: Oriented x3, CN's nml (2-12), Motor nml, Sensation nml, Mood/affect nml - LABS Result Diagrams: 02/09/19 04:45 02/09/19 04:45 Other Lab Results: Laboratory Tests 02/07/19 02/07/19 02/07/19 17:40 17:40 17:40 WBC 0.6 L* RBC 3.07 L Hgb 8.9 L Hct 27.6 L MCV 89.9 MCH 29.0 MCHC 32.2 RDW 12.7 Plt Count 146 MPV 9.6 Neut # (Auto) Not Reportable Lymph # (Auto) Not Reportable [place] # (Auto) Not Reportable Eos # (Auto) Not Reportable Baso # (Auto) Not Reportable Absolute Nucleated RBC Not Reportable Total Counted 100 Band Neuts % (Manual) 0 Abnorm Lymph % (Manual) 0 Nucleated RBC % Not Reportable Neutrophils # (Manual) 0.0 L* Lymphocytes # (Manual) 0.5 L Monocytes # (Manual) 0.1 Eosinophils # (Manual) 0.0 Basophils # (Manual) 0.0 Differential Comment MANUAL DIFFERENTIAL Manual Slide Review Indicated WBC Morphology 1+ DOHLE BODIES Platelet Estimate NORMAL (130-450,000) Platelet Morphology NORMAL APPEARANCE RBC Morph Micro Appear NORMAL APPEARANCE Sodium 133 L Potassium 4.0 Chloride 100 L Carbon Dioxide 22 Anion Gap 11.0 BUN 8 Creatinine 0.6 Estimated GFR (MDRD) 120 Glucose 113 H Lactic Acid 0.7 Calcium 9.0 Total Bilirubin 0.7 AST 11 ALT 12 Alkaline Phosphatase 45 Total Protein 7.6 Albumin 4.4 Globulin 3.2 Albumin/Globulin Ratio 1.4 Lipase 19 L Serum HCG, Qual Urine Color Urine Clarity Urine pH Ur Specific [place] Urine Protein Urine Glucose (UA) Urine Ketones Urine Occult Blood Urine Nitrite Urine Bilirubin Urine Urobilinogen Ur Leukocyte Esterase Urine RBC Urine WBC Ur Squamous Epith Cells Urine Bacteria Urine Culture Comments 02/07/19 02/07/19 02/08/19 17:40 18:45 05:15 WBC 0.8 L* RBC 2.59 L Hgb 7.6 L Hct 23.8 L MCV 91.9 MCH 29.3 MCHC 31.9 L RDW 12.8 Plt Count 130 MPV 10.0 Neut # (Auto) Not Reportable Lymph # (Auto) Not Reportable [place] # (Auto) Not Reportable Eos # (Auto) Not Reportable Baso # (Auto) Not Reportable Absolute Nucleated RBC Not Reportable Total Counted 100 Band Neuts % (Manual) 0 Abnorm Lymph % (Manual) 0 Nucleated RBC % Not Reportable Neutrophils # (Manual) 0.2 L* Lymphocytes # (Manual) 0.6 L Monocytes # (Manual) 0.0 Eosinophils # (Manual) 0.0 Basophils # (Manual) 0.0 Differential Comment MANUAL DIFFERENTIAL Manual Slide Review WBC Morphology NORMAL APPEARANCE Platelet Estimate NORMAL (130-450,000) Platelet Morphology NORMAL APPEARANCE RBC Morph Micro Appear NORMAL APPEARANCE Sodium Potassium Chloride Carbon Dioxide Anion Gap BUN Creatinine Estimated GFR (MDRD) Glucose Lactic Acid Calcium Total Bilirubin AST ALT Alkaline Phosphatase Total Protein Albumin Globulin Albumin/Globulin Ratio Lipase Serum HCG, Qual NEGATIVE Urine Color YELLOW Urine Clarity CLEAR Urine pH 7.0 Ur Specific [place] <=1.005 Urine Protein NEGATIVE Urine Glucose (UA) NEGATIVE Urine Ketones NEGATIVE Urine Occult Blood TRACE-INTA Urine Nitrite NEGATIVE Urine Bilirubin NEGATIVE Urine Urobilinogen 0.2 (NORMAL) Ur Leukocyte Esterase NEGATIVE Urine RBC None Seen Urine WBC 0-3 Ur Squamous Epith Cells FEW Squamous Urine Bacteria Rare Urine Culture Comments NOT INDICATED 08/21/19 08/22/19 08/22/19 05:15 04:45 04:45 WBC 1.3 L* RBC 2.49 L Hgb 7.6 L Hct 23.1 L MCV 92.8 MCH 30.5 MCHC 32.9 RDW 12.7 Plt Count 98 L MPV 10.4 Neut # (Auto) Not Reportable Lymph # (Auto) Not Reportable [place] # (Auto) Not Reportable Eos # (Auto) Not Reportable Baso # (Auto) Not Reportable Absolute Nucleated RBC Not Reportable Total Counted 100 Band Neuts % (Manual) 0 Abnorm Lymph % (Manual) 0 Nucleated RBC % Not Reportable Neutrophils # (Manual) 0.3 L* Lymphocytes # (Manual) 0.9 L Monocytes # (Manual) 0.1 Eosinophils # (Manual) 0.1 Basophils # (Manual) 0.0 Differential Comment MANUAL DIFFERENTIAL Manual Slide Review WBC Morphology Platelet Estimate DECREASED (<130,000) Platelet Morphology RBC Morph Micro Appear NORMAL APPEARANCE Sodium 136 139 Potassium 3.7 3.9 Chloride 107 111 Carbon Dioxide 21 21 Anion Gap 8.0 7.0 BUN 6 < 5 L Creatinine 0.6 0.4 Estimated GFR (MDRD) 120 191 Glucose 110 H 99 Lactic Acid Calcium 8.2 L 8.0 L Total Bilirubin AST ALT Alkaline Phosphatase Total Protein Albumin Globulin Albumin/Globulin Ratio Lipase Serum HCG, Qual Urine Color Urine Clarity Urine pH Ur Specific [place] Urine Protein Urine Glucose (UA) Urine Ketones Urine Occult Blood Urine Nitrite Urine Bilirubin Urine Urobilinogen Ur Leukocyte Esterase Urine RBC Urine WBC Ur Squamous Epith Cells Urine Bacteria Urine Culture Comments - DIAGNOSTIC IMAGING Diagnostic Imaging Results: Final report reviewed - QUALITY (Female Hip Fx Only) Was patient sent home on osteoporosis medication?: No - FOLLOW UP Follow Up: Patient will follow-up with her oncologist on Wednesday. - TIME SPENT Time Spent in Discharge (Minutes): 45
[2019-02-09] MEDS: POLYETHYLENE GLYCOL 3350 17 GM PACKET PO SCH (09:28)
[2019-02-09] MEDS ORDERED: FLUCONAZOLE 100 MG TABLET PO SCH (11:00)
[2019-02-09] MEDS: ACETAMINOPHEN 325 MG TABLET PO PRN (11:03)
== END 2019-02-09 12:00 | disposition home or self-care (01) | DRG 808 ==
LOC: ED 15:54 → MS2 19:25
PROVIDERS: ADMIT Internal Medicine; ATTEND Internal Medicine
DX: D61.810 Antineoplastic chemotherapy induced pancytopenia (principal); E43 Unspecified severe protein-calorie malnutrition; E87.1 Hypo-osmolality and hyponatremia; C77.9 Secondary and unspecified malignant neoplasm of lymph node, unspecified; C50.912 Malignant neoplasm of unspecified site of left female breast; K12.31 Oral mucositis (ulcerative) due to antineoplastic therapy; B34.9 Viral infection, unspecified; T45.1X5A Adverse effect of antineoplastic and immunosuppressive drugs, initial encounter; F32.9 Major depressive disorder, single episode, unspecified; F41.9 Anxiety disorder, unspecified; R11.0 Nausea; K59.00 Constipation, unspecified; R32 Unspecified urinary incontinence; Y92.531 Health care provider office as the place of occurrence of the external cause; Z68.23 Body mass index [BMI] 23.0-23.9, adult; Z79.899 Other long term (current) drug therapy
CPT/HCPCS: 36415; 71046; 80048; 80053; 81001; 83605; 83690; 84703; 85025; 87040; 87070; 96365; 99284; 99285; A9270; J3370; J7120; 87086

== ENCOUNTER 2019-05-29 11:59 | Outpatient (CLI) | payer OTHER ==
--- NOTE | 2019-05-30 12:06 | Ultrasound Report ---
Reason: BREAST MASS, LUMP Procedure Date: 05/29/2019 Accession Number: [id number] / [id number] Procedure: US - Chest CPT Code: Final Report FULL RESULT: EXAM: CHEST WALL ULTRASOUND - LIMITED EXAM DATE: 05/29/2019 12:57 PM. CLINICAL HISTORY: Breast mass, lump. COMPARISON: None. TECHNIQUE: Real-time scanning was performed with static images obtained. FINDINGS: The left upper chest area of clinical concern was interrogated by focused breast ultrasound as indicated by the patient. No suspicious abnormalities identified. Normal subcutaneous soft tissue muscle and chest wall are seen. IMPRESSION: No sonographic abnormalities detected. RADIA
== END 2019-05-29 12:00 | disposition home or self-care (01) ==
LOC: DI 11:59
PROVIDERS: ATTEND Surgery
DX: N63.20 Unspecified lump in the left breast, unspecified quadrant (principal)
CPT/HCPCS: 76604

== ENCOUNTER 2019-10-16 12:54 | Outpatient (CLI) | payer OTHER | END 2019-10-16 12:55 | disposition home or self-care (01) | LOC: LAB 12:54 | PROVIDERS: ATTEND Family Medicine | DX: Z11.1 Encounter for screening for respiratory tuberculosis (principal) | CPT/HCPCS: 36415; 81599 ==

== ENCOUNTER 2019-12-27 09:42 | Outpatient (CLI) | payer OTHER ==
--- NOTE | 2019-12-28 08:54 | Mammography Report ---
UNILATERAL RIGHT DIGITAL SCREENING MAMMOGRAM 3D/2D: 12/27/2019 CLINICAL: Routine screening. Personal history of left breast cancer. Comparison is made to exams dated: 11/18/2018 mammogram and 11/16/2018 mammogram - [facility]. The tissue of right breast is heterogeneously dense. This may lower the sensitivity of ma mmography. No significant masses, calcifications, or other findings are seen in the breast. There has been no significant interval change. IMPRESSION: NEGATIVE There is no mammographic evidence of malignancy. A 1 year screening mammogram is recommended. This exam was interpreted at Station ID: [id number]. NOTE: For mammograms, a report in lay terms will be sent to the patient. Approximately 15% of breast malignancies will not be visualized mammographically. In the management of a palpable breast mass, a negative mammogram must not discourage biopsy of a clinically suspicious lesion. Electronically Signed By: Allie rinaldi/stuart:12/27/2019 16:15:53 ACR BI-RADS Category 1: Negative [id number] PARENCHYMAL PATTERN: (D) - The breast(s) demonstrate(s) heterogeneously dense fibroglandular parenchy ma. BI-RADS CATEGORY: (1) - 1 RECOMMENDATION: (ANNUAL) - Recommend routine annual screening mammography. [id number] 1 year screening LATERALITY: (B)
== END 2019-12-27 09:43 | disposition home or self-care (01) ==
LOC: DI 09:42
DX: Z12.31 Encounter for screening mammogram for malignant neoplasm of breast (principal); Z85.3 Personal history of malignant neoplasm of breast
CPT/HCPCS: 77063

== ENCOUNTER 2020-03-05 10:40 | Outpatient (CLI) | payer OTHER ==
--- NOTE | 2020-03-05 13:39 | DEXA Report ---
PROCEDURE: Dexa Spine and/or Hip INDICATIONS: BREAST CANCER, ESTROGEN THERAPY TECHNIQUE: Dual energy x-ray absorptiometry (DXA) was performed on a CritiSense System. Regions measur ed are the AP Spine, femoral neck, and if needed forearm. COMPARISON: None. FINDINGS: Lumbar Spine: Bone Mineral Density 0.914 g/cm/cm,T score -2.2, osteopenia Left Hip: Bone Mineral Density 0.822 g/cm/cm,T score -1.5, osteopenia Left Femoral Neck: Bone Mineral Density 0.807 g/cm/cm, T score -1.7, osteopenia (T score greater or equal to -1.0: NORMAL) (T score from -1.1 to -2.4: OSTEOPENIA) (T score less than or equal to -2.5 to: OSTEOPOROSIS) Impression: 1. Osteopenia elevates the patient's 10 year fracture risk. Patients with diagnosis of osteoporosis or osteopenia should have regular bone mineral density assess ment. For those eligible for Medicare, routine testing is allowed once every 2 years. Testing frequ ency can be increased for patients who have rapidly progressing disease or for those who are receivin g medical therapy to restore bone mass. Reviewed by: Deedee Oates MD on 03/05/2020 1:38 PM PDT Approved by: Deedee Oates MD on 03/05/2020 1:38 PM PDT Station ID: [id number]
== END 2020-03-05 10:41 | disposition home or self-care (01) ==
LOC: DI 10:40
PROVIDERS: ATTEND Internal Medicine Hematology & Oncology
DX: M85.89 Other specified disorders of bone density and structure, multiple sites (principal)
CPT/HCPCS: 77080; 82670; 83001; 83002

== ENCOUNTER 2020-03-13 09:52 | Emergency (ER) | payer OTHER ==
--- NOTE | 2020-03-13 10:59 | ED Physician Documentation ---
PD HPI CHEST PAIN - Stated complaint Stated Complaint: CHEST PRESSURE, BACK PAIN - Chief complaint Chief Complaint: Cardiac - History obtained from History obtained from: Patient - Additional information Additional information: 29-year-old woman with history of left-sided stage III breast cancer still on Lupron and tamoxifen. For the last couple of months she has had intermittent chest and back pain. Does not seem to have a pattern to it. It is not associated with shortness of breath. No exertional component. She vacillates on whether or not it might be related to eating. Throughout 3 weeks ago she did travel to [place] via airplane. However her symptoms preceded that. No personal or family history of DVT or PE or coronary disease. Pain has been worse since last night than it had been in the last few months. Episodes last hours at a time. 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, Other - Present Medications Home Medications: Ambulatory Orders Medication Instructions Recorded Confirmed Acetaminophen [Tylenol] 325 mg PO Q6HR PRN 01/10/19 02/05/20 LORazepam [Lorazepam] 0.5 - 1 mg PO Q6H PRN 02/08/19 02/05/20 Ondansetron HCl [Zofran] 4 mg PO Q4H PRN 02/08/19 02/05/20 Prochlorperazine Maleate 10 mg PO Q6H PRN 02/08/19 02/05/20 [Compazine] Magic Mouthwash 30 ml PO Q6HR PRN #240 ml 02/09/19 02/05/20 Ascorbic Acid [Vitamin C] 500 mg PO DAILY 03/20/19 02/05/20 Ferrous Gluconate 325 mg PO DAILY 03/20/19 02/05/20 Folic Acid 1 mg PO DAILY 03/20/19 02/05/20 Tamoxifen Citrate 20 mg PO DAILY 09/04/19 02/05/20 Omeprazole 20 mg PO DAILY #30 capsule. 03/13/20 - Allergies Allergies/Adverse Reactions: Allergies Allergy/AdvReac Type Severity Reaction Status Date / Time gabapentin AdvReac Headache Verified 03/13/20 09:59 - Social History Does the pt smoke?: No Smoking Status: Never smoker Does the pt drink ETOH?: No Does the pt have substance abuse?: No - Immunizations Immunizations are current?: Yes - POLST Patient has POLST: No POLST Status: Full Code PD ED PE NORMAL - Vitals Vital signs reviewed: Yes - General General: Alert and oriented X 3, No acute distress - HEENT HEENT: PERRL, EOMI - Neck Neck: Supple, no meningeal sign, No bony TTP - Cardiac Cardiac: RRR, No murmur - Respiratory Respiratory: No respiratory distress, Clear bilaterally - Abdomen Abdomen: Non tender - Back Back: No CVA TTP, No spinal TTP - Derm Derm: Normal color - Neuro Neuro: Alert and oriented X 3, Normal speech - Psych Psych: Normal mood, Normal affect Results - Vitals Vitals: Vital Signs - 24 hr 03/13/20 03/13/20 09:56 11:57 Temperature 36.0 C L Heart Rate 88 70 Respiratory 16 16 Rate Blood Pressure 146/93 H 120/79 O2 Saturation 100 99 Oxygen O2 Source Room air - EKG (time done) 1003 Rate: Rate (enter#) (76) Rhythm: NSR [place]: Normal Intervals: Normal ND QRS: Normal Ischemia: Normal ST segments. No: ST elevation c/w ischemia, ST depression, T wave inversion - Labs Labs: Laboratory Tests 03/13/20 03/13/20 03/13/20 10:55 10:55 10:55 WBC 4.4 L RBC 4.05 L Hgb 12.0 Hct 36.9 L MCV 91.1 MCH 29.6 MCHC 32.5 RDW 12.3 Plt Count 211 MPV 9.1 Neut # (Auto) 2.9 Lymph # (Auto) 1.0 L [place] # (Auto) 0.4 Eos # (Auto) 0.1 Baso # (Auto) 0.0 Absolute Nucleated RBC 0.00 Nucleated RBC % 0.0 D-Dimer Sodium 137 Potassium 4.3 Chloride 100 L Carbon Dioxide 27 Anion Gap 10.0 BUN 10 Creatinine 0.7 Estimated GFR (MDRD) 100 Glucose 100 Calcium 9.2 Total Bilirubin 0.6 AST 24 ALT 21 Alkaline Phosphatase 52 Troponin I High Sens 4.9 Total Protein 7.5 Albumin 4.1 Globulin 3.4 Albumin/Globulin Ratio 1.2 Lipase 25 03/13/20 10:55 WBC RBC Hgb Hct MCV MCH MCHC RDW Plt Count MPV Neut # (Auto) Lymph # (Auto) [place] # (Auto) Eos # (Auto) Baso # (Auto) Absolute Nucleated RBC Nucleated RBC % D-Dimer 221.1 Sodium Potassium Chloride Carbon Dioxide Anion Gap BUN Creatinine Estimated GFR (MDRD) Glucose Calcium Total Bilirubin AST ALT Alkaline Phosphatase Troponin I High Sens Total Protein Albumin Globulin Albumin/Globulin Ratio Lipase - Rads (name of study) 1v chest xr Radiology: EMP read contemporaneously (nad) PD MEDICAL DECISION MAKING - ED course ED course: 29-year-old woman with recurrent atypical chest pain. Differential diagnosis included ACS but heart score 0. Also PE, especially noting hormonal therapy and recent travel, but her symptoms preceded the travel, and her d-dimer was negative. Departure - Departure Disposition: 01 Home, Self Care Clinical Impression: Atypical chest pain Condition: Good Record reviewed to determine appropriate education?: Yes Instructions: ED Chest Pain NonCardiac Prescriptions: Omeprazole 20 mg PO DAILY #30 capsule. Comments: No evidence of heart disease or blood clot today. Follow-up with your primary care physician, next available appointment. Return if worse. The pain may be from a GI source and it is reasonable to trial the omeprazole prescribed for that. Discharge Date/Time: 03/13/20 11:57
--- NOTE | 2020-03-13 11:01 | XRAY Report ---
PROCEDURE: Chest 1 View X-Ray INDICATIONS: Chest pain TECHNIQUE: One view of the chest was acquired. COMPARISON: 02/07/2019 FINDINGS: Surgical changes and devices: None. Lungs and pleura: No pleural effusions or pneumothorax. Lungs are clear. Mediastinum: Mediastinal contours appear normal. Heart size is normal. Bones and chest wall: No suspicious bony lesions. Overlying soft tissues appear unremarkable. IMPRESSION: No acute process. Reviewed by: Deedee Oates MD on 03/13/2020 10:00 AM [facility] Approved by: Deedee Oates MD on 03/13/2020 10:00 AM [facility] Station ID: [id number]
[2020-03-13 11:21] LABS: BASOPHILS % (AUTO) 0.5 %; EOSINOPHILS # (AUTO) 0.1 10^3/uL (0.0-0.7); EOSINOPHILS % (AUTO) 1.6 %; LYMPHOCYTES % (AUTO) 23.5 %; MEAN CORPUSCULAR HEMOGLOBIN 29.6 pg (27.0-31.0); MEAN CORPUSCULAR HGB CONC 32.5 g/dL (32.0-36.0); MEAN CORPUSCULAR VOLUME 91.1 fL (81.0-99.0); MEAN PLATELET VOLUME 9.1 fL (7.9-10.8); MONOCYTES # (AUTO) 0.4 10^3/uL (0.0-1.0); MONOCYTES % (AUTO) 9.3 %; NEUTROPHILS # (AUTO) 2.9 10^3/uL (1.5-6.6); NEUTROPHILS % (AUTO) 64.6 %; PLT - PLATELET COUNT 211 10^3/uL (130-450); RED BLOOD COUNT 4.05 10^6/uL (4.20-5.40); RED CELL DISTRIBUTION WIDTH 12.3 % (12.0-15.0); WHITE BLOOD COUNT 4.4 x10^3/uL (4.8-10.8)
[2020-03-13] MEDS ORDERED: KETOROLAC 30 MG/ML VIAL IVP STA (11:29)
[2020-03-13 11:36] LABS: ALBUMIN 4.1 g/dL (3.2-5.5); ALBUMIN/GLOBULIN RATIO 1.2 (1.0-2.2); BILIRUBIN,TOTAL 0.6 mg/dL (0.2-1.0); CALCIUM 9.2 mg/dL (8.5-10.3); CREATININE 0.7 mg/dL (0.4-1.0); TOTAL PROTEIN 7.5 g/dL (6.7-8.2)
[2020-03-13 11:58] VITALS: BP 120/79
== END 2020-03-13 11:57 | disposition home or self-care (01) ==
LOC: ED 09:52
DX: R07.89 Other chest pain (principal)
CPT/HCPCS: 36415; 71045; 80053; 83690; 84484; 85025; 85379; 93005; 96374; 99284

== ENCOUNTER 2020-03-22 13:33 | Outpatient (CLI) | payer OTHER ==
--- NOTE | 2020-03-22 14:06 | XRAY Report ---
PROCEDURE: Lumbar Spine 2 View INDICATIONS: LOW BACK PAIN TECHNIQUE: 2 views of the lumbar spine were acquired. COMPARISON: None. FINDINGS: Bones: 5 [id number] vertebrae are present. There is normal bony alignment. No vertebral body compression fractures. No suspicious bony lesions. Soft tissues: Overlying bowel gas pattern is normal. No suspicious soft tissue calcifications. IMPRESSION: No compression fracture or spondylolisthesis in lumbar spine. No finding to explain tomás ent's symptoms. Reviewed by: Dg Delgado MD on 03/22/2020 1:04 PM [facility] Approved by: Dg Delgado MD on 03/22/2020 1:04 PM [facility] Station ID: [id number]
== END 2020-03-22 13:34 | disposition home or self-care (01) ==
LOC: DI.WCP 13:33
PROVIDERS: ATTEND Family Medicine
DX: M54.5 Low back pain (principal); C50.912 Malignant neoplasm of unspecified site of left female breast
CPT/HCPCS: 72100

== ENCOUNTER 2020-04-02 09:59 | Outpatient (CLI) | payer OTHER ==
--- NOTE | 2020-04-02 13:40 | MRI Report ---
PROCEDURE: Lumbar Spine W/O INDICATIONS: ACUTLE LOW BACK PAIN, LT BREAST CA TECHNIQUE: Noncontrast sagittal T1 spin echo and T2 fast echo, sagittal STIR, axial T1 and T2 fast spin echo thr ough the lumbar spine. In cases with scoliosis, additional coronal T2 fast spin echo may be performe d. COMPARISON: CT dated 01.05.19 FINDINGS: Image quality: Excellent. Alignment and Curvature: There is normal bony alignment. Bone Marrow: Marrow is of normal overall signal. No acute vertebral body compression fractures. Spinal Cord: Conus medullaris terminates at the upper L2 level. Visualized cord demonstrates normal signal and size. Paraspinous Soft Tissues: No paravertebral masses. T12-L1: Normal in appearance. L1-L2: Normal in appearance. L2-L3: Normal in appearance. L3-L4: Normal in appearance. L4-L5: Normal in appearance. L5-S1: Normal in appearance. IMPRESSION: Negative examination. No significant canal, nor foraminal stenosis. No neural impingemen t. Reviewed by: Nu Morgan MD on 04/02/2020 1:38 PM PDT Approved by: Nu Morgan MD on 04/02/2020 1:38 PM PDT Station ID: [id number]
== END 2020-04-02 10:00 | disposition home or self-care (01) ==
LOC: DI 09:59
PROVIDERS: ATTEND Family Medicine
DX: M54.5 Low back pain (principal); C50.912 Malignant neoplasm of unspecified site of left female breast
CPT/HCPCS: 72148

== ENCOUNTER 2020-06-01 15:34 | Outpatient (CLI) | payer OTHER ==
[2020-06-01] MEDS ORDERED: GADOBUTROL 7.5 MMOL/7.5 ML VIAL ONE (17:12)
[2020-06-01] MEDS ORDERED: GADOBUTROL 7.5 MMOL/7.5 ML VIAL IVP ONE (17:56)
--- NOTE | 2020-06-03 09:19 | MRI Report ---
PROCEDURE: Brain W/WO INDICATIONS: Abnormal CT of the head CONTRAST: IV CONTRAST: Gadavist ml: 6 TECHNIQUE: Noncontrast axial T1 spin echo, axial T2 fast spin echo, sagittal and axial FLAIR, coronal T2 fast sp in echo, axial gradient echo, axial diffusion and ADC through the brain. After the administration of contrast, axial and coronal T1 spin echo with fat saturation through the brain. COMPARISON: 01/20/[address] FINDINGS: Image quality: Excellent. CSF spaces: Basal cisterns are patent. No extra-axial fluid collections. Ventricles are normal in size and shape. Brain: Previously identified cystic lesion in the left occipital lobe is unchanged in size when sophie red with CT exam from 01/20/2019. This follows CSF signal intensity on all sequences. There is no assoc iated internal or adjacent enhancement. No adjacent brain parenchymal signal abnormality. Remainder t he brain is unremarkable with regard to signal intensity and enhancement. Midline structures are with in normal limits. Skull and face: Calvarial marrow is normal in signal. Orbits appear normal. Sinuses: Sinuses and mastoids appear clear. IMPRESSION: Lesion in the left occipital lobe is unchanged in size and follows CSF signal on all sequences with n o abnormal associated enhancement. 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 At least one additional contrast enhanced follow-up examination is recommended to docume nt long-term stability and help exclude other differential considerations. Reviewed by: Sumanth Lindsay MD on 06/03/2020 8:17 AM [facility] Approved by: Sumanth Lindsay MD on 06/03/2020 8:17 AM [facility] Station ID: [id number]
== END 2020-06-01 15:35 | disposition home or self-care (01) ==
LOC: DI 15:34
PROVIDERS: ATTEND Family Medicine
DX: R94.02 Abnormal brain scan (principal); G93.9 Disorder of brain, unspecified
CPT/HCPCS: 70553; A9585

== ENCOUNTER 2020-10-02 10:37 | Outpatient (CLI) | payer OTHER ==
--- NOTE | 2020-10-03 15:21 | Ultrasound Report ---
LIMITED ULTRASOUND OF LEFT BREAST: 10/02/2020 CLINICAL: Palpable left breast lumps. Comparison is made to exams dated: 11/25/2018 breast MRI, 11/25/2018 breast MRI, 11/18/2018 ultrasound, mammogram, 11/16/2018 mammogram, and 11/15/2018 ultrasound - [facility]. Color flow and real-time ultrasound of the left breast 12 o'clock region were performed. Harden scale images of the real-time examination were reviewed. There is a possible area of heterogeneous fibroglandular tissue in the left breast at 12 o'clock post erior depth. There may be subcutaneous lymph nodes within this tissue. Color flow imaging demonstrat es that there is no increased vascularity present. This correlates as palpated. IMPRESSION: PROBABLY BENIGN The possible area of fibroglandular tissue in the left breast most likely is post surgical changes, f ibrosis, or fat necrosis and is probably benign. A follow-up ultrasound in 3 months is recommended. If this area enlarges, imaging may be performed sooner. Future imaging is recommended as follows: 0 12/27/2020 screening mammogram. Findings and recommendations were conveyed to the patient at time of exam. This exam was interpreted at Station ID: [id number]. Electronically Signed By: Deedee anaya/:10/02/2020 11:53:10 Ultrasound BI-RADS: 3 Probably benign BI-RADS CATEGORY: (3) - 3 Ultrasound [id number] 3 month follow-up LATERALITY: (L)
== END 2020-10-02 10:38 | disposition home or self-care (01) ==
LOC: DI 10:37
PROVIDERS: ATTEND Family Medicine
DX: N63.21 Unspecified lump in the left breast, upper outer quadrant (principal); Z42.1 Encounter for breast reconstruction following mastectomy; Z90.12 Acquired absence of left breast and nipple